=== PATIENT | female | born 1945 | race American Indian/Alaskan Native ===

== ENCOUNTER 2016-08-17 19:47 | Inpatient (IN) | payer MEDICARE ==
[2016-08-17] MEDS ORDERED: D50W (25GM) IV PRN (21:18)
[2016-08-17] MEDS ORDERED: ARTIFICIAL TEARS OPHTH OINT OU PRN (21:21)
[2016-08-17] MEDS ORDERED: LOPRESSOR PO SCH (22:00)
[2016-08-17] MEDS: LOPRESSOR PO SCH (22:54)
[2016-08-17] MEDS: TYLENOL PO PRN (22:55)
[2016-08-18 05:13] LABS: Basophils % (Auto) 0.6 % (0.0-1.8); Eosinophils % (Auto) 4.6 % (0.0-4.3); Hemoglobin 9.1 gm/dl (10.1-14.3); Mean Corpuscular HGB Conc 31 % (30-34); Mean Corpuscular Hemoglobin 27 pg (28-32); Mean Corpuscular Volume 85 fl (79-97); Platelet Count 388 K/mm3 (140-440); Red Blood Count 3.44 M/mm3 (3.65-5.03); White Blood Count 9.2 K/mm3 (4.5-11.0)
[2016-08-18 05:16] LABS: Red Cell Distribution Width 20.3 % (13.2-15.2)
[2016-08-18 05:41] LABS: Albumin/Globulin Ratio 0.7 %; Bilirubin,Total 0.3 mg/dL (0.1-1.2); Calcium 8.6 mg/dL (8.4-10.2); Chloride 105.7 mmol/L (98-107); Potassium 4.2 mmol/L (3.6-5.0); Total Protein 7.3 g/dL (6.3-8.2)
[2016-08-18] MEDS ORDERED: CATAPRES PO SCH (08:00)
[2016-08-18] MEDS: CATAPRES PO SCH ×3 (10:08→21:00)
[2016-08-18] MEDS: NORVASC PO SCH (10:09)
[2016-08-18] MEDS: LOPRESSOR PO SCH ×2 (10:09→22:51)
[2016-08-18] MEDS: DIFLUCAN PO SCH (10:10)
[2016-08-18] MEDS: HEPARIN SUB-Q SCH ×2 (10:11→22:52)
--- NOTE | 2016-08-18 11:15 | History and Physical Report ---
History of Present Illness Date: 08/18/16 Referring Facility: [facility] Date of admission: 08/17/16 19:47 Chief Complaint: DKA with acute respiratory failure History of present illness: POST ADMISSION PHYSICIAN EVALUATION ONSET DATE: 08/01/2016 IMPAIRMENT GROUP CODE: 17.9 ETIOLOGIC DIAGNOSIS: DKA with acute respiratory failure STATUS CHANGES SINCE PREADMISSION SCREENING: PAS has been reviewed. In comparison, pt with milian removed just prior to admission; now noted to be incontinent of urine. Also with increased left eye redness, no associated pain , however reports blurry vision. Pt has tolerated initiation of therapies; continues with functional deficits and remains an appropriate candidate for IRU admission. PREVIOUS FUNCTIONAL STATUS: Independent with ADLs, gait, transfers CURRENT FUNCTIONAL STATUS: per PAS, S/U to maxA for ADLs; modA x2 for 10 feet with RW HPI 70 y.o. female found down in her home by her ; required intubation due to acute respiratory failure, later self extubated on 08/11 to 2L nasal cannula ( not on oxygen at home). On acute care admission, pt also noted to be in DKA ( blood sugar of 690) and acute renal failure (BUN/Cr, 50/4.7). Pt required insulin drip; HgA1c noted to be 10; pt and unaware of diagnosis of DM prior to admission. Pt also required emergent hemodialysis (NEW); now discontinued. Acute care course further notable for sepsis, Samantha in blood and urine, repeat blood cultures negative; hypernatremia (max 150, currently 147 ); acute blood loss anemia (lowest H/H, 5.9/18.6), s/p 3U pRBCs; rhabdomyolysis with max CK 2522, now 117; acute encephalopathy. Once stable, pt was seen and evaluated by PT/HEALTH PROMOTION MANAGER and found to have difficulty ambulating and dysphagia; started on pureed diet. Pt is now admitted to IRU for ongoing medical management and aggressive therapies. Past History Past Medical History: diabetes (newly diagnosed), hypertension, renal failure Past Surgical History: hysterectomy Social history: , lives with family. denies: smoking, alcohol abuse Family history: hypertension, other (renal failure) Medications and Allergies Allergies Allergy/AdvReac Type Severity Reaction Status Date / Time No Known Allergies Allergy Verified 08/01/16 01:22 Home Medications Medication Instructions Recorded Confirmed Last Taken Type ALBUTEROL Inhaler [ProAir HFA 2 puff IH QID PRN #30 inhalation 08/17/16 Unknown Rx Inhaler] Bisacodyl [Dulcolax suppos] 10 mg PA QDAY PRN #10 supp.rect 08/17/16 Unknown Rx Ferrous Sulfate [Feosol 325 MG tab] 325 mg PO BID #60 tablet 08/17/16 Unknown Rx Fluconazole [Diflucan TAB] 100 mg PO QDAY #10 tablet 08/17/16 Unknown Rx Insulin NPH, Human [NovoLIN N] 10 unit SUB-Q BIDDIAB #30 units 08/17/16 Unknown Rx Metoprolol [Lopressor TAB] 100 mg PO BID #60 tablet 08/17/16 Unknown Rx Min Oil/Petrolatum [Artificial 1 applic OU Q4HR PRN #1 tube 08/17/16 Unknown Rx Tears Ophth Oint] amLODIPine [Norvasc] 10 mg PO QDAY #30 tablet 08/17/16 Unknown Rx cloNIDine [Catapres] 0.2 mg PO TID #60 tablet 08/17/16 Unknown Rx Active Meds: Active Medications Acetaminophen (Tylenol) 650 mg PO Q4H PRN PRN Reason: Pain MILD(1-3)/Fever >100.5/[place] Last Admin: 08/17/16 22:55 Dose: 650 mg Amlodipine Besylate (Norvasc) 10 mg PO QDAY [facility] Last Admin: 08/18/16 10:09 Dose: 10 mg Bisacodyl (Dulcolax) 10 mg PA QDAY PRN PRN Reason: Constipation unrelieved by MOM Clonidine HCl (Catapres) 0.1 mg PO TID [facility] Last Admin: 08/18/16 10:08 Dose: 0.1 mg Dextrose (D50w (25gm)) 50 ml IV PRN PRN PRN Reason: Hypoglycemia Fluconazole (Diflucan) 100 mg PO QDAY [facility] Stop: 08/25/16 07:59 Last Admin: 08/18/16 10:10 Dose: 100 mg Heparin Sodium (Porcine) (Heparin) 5,000 unit SUB-Q Q12HR [facility] Last Admin: 08/18/16 10:11 Dose: 5,000 unit Insulin Human NPH (Novolin N) 10 unit SUB-Q BIDDIAB [facility] Last Admin: 08/18/16 10:10 Dose: 10 unit Insulin Human Regular (Novolin R) 0 units SUB-Q ACHS [facility] PRN Reason: Protocol Last Admin: 08/17/16 22:55 Dose: 1 units Metoprolol Tartrate (Lopressor) 100 mg PO BID [facility] Last Admin: 08/18/16 10:09 Dose: 100 mg Multi-Ingred Cream/Lotion/Oil/Oint (Artificial Tears Ophth Oint) 1 applic OU Q4HR PRN PRN Reason: Dry Eye(s) Senna (Senokot) 8.6 mg PO Q12H PRN PRN Reason: Laxative Effect Review of Systems All systems: negative Eyes: left: blurred vision (redness) Ears, nose, mouth and throat: no headache Cardiovascular: no chest pain, no lightheadedness Respiratory: no cough Genitourinary Female: other (bladder incontinence since removing milian) Musculoskeletal: other (right hand finger contracture, new) Exam - Constitutional Vitals: Vital Signs - 12hr 08/18/16 08/18/16 09:20 10:08 Temperature 98.5 F Pulse Rate 80 Pulse Rate [ 77 Right Brachial] Respiratory 18 Rate Blood Pressure 156/73 Blood Pressure 147/68 [Right Arm] O2 Sat by Pulse 99 Oximetry General appearance: no acute distress, obese - EENT Eyes: EOM intact, conjunctival injection (left eye) ENT: hearing intact - Neck Neck: supple, normal ROM - Respiratory Respiratory effort: normal Respiratory: bilateral: CTA - Cardiovascular Rhythm: regular Heart Sounds: Present: S1 & S2 - Extremities Extremities: No edema - Gastrointestinal General gastrointestinal: Present: soft, non-tender, non-distended, normal bowel sounds - Integumentary Integumentary: Present: clear - Neurologic Neurologic: CNII-XII intact, moves all extremities (4/5 throughout, except decreased ROM at right hand, DIP) - Psychiatric Psychiatric: appropriate mood/affect, intact judgment & insight, no memory intact (oriented to self, family; however, noted to have mild short term memory deficits), cooperative - Allied health notes FIMS assesment as documented by PT/OT/ST: Social interaction/Memory/Problem solving Social Interaction FIM Score 5. Supervision (Needs supv. <10%. Needs encouragement to participate.) Memory FIM Score 4. Minimal Assistance (Recognizes and remembers 75-90%.) Problem Solving FIM Score 4. Minimal Assistance (Solves routine problems 75-90%.) Eating Eating FIM Score 5. Supervision/Set-Up (Needs help w/ containers , cutting meat, etc.) - Labs CBC & Chem 7: 08/18/16 04:06 08/18/16 04:06 Labs: Laboratory Results - last 72 hr 08/17/16 08/18/16 08/18/16 22:18 03:03 04:06 WBC 9.2 RBC 3.44 L Hgb 9.1 L Hct 29.0 L MCV 85 MCH 27 L MCHC 31 RDW 20.3 H Plt Count 388 Lymph % (Auto) 17.8 [place] % (Auto) 8.8 H Eos % (Auto) 4.6 H Baso % (Auto) 0.6 Lymph # 1.6 [place] # 0.8 Eos # 0.4 Baso # 0.1 Seg Neutrophils % 68.2 Seg Neutrophils # 6.3 Sodium Potassium Chloride Carbon Dioxide Anion Gap BUN Creatinine Estimated GFR BUN/Creatinine Ratio Glucose POC Glucose 151 H 119 H Calcium Total Bilirubin AST ALT Alkaline Phosphatase Total Protein Albumin Albumin/Globulin Ratio 08/18/16 08/18/16 04:06 06:50 WBC RBC Hgb Hct MCV MCH MCHC RDW Plt Count Lymph % (Auto) [place] % (Auto) Eos % (Auto) Baso % (Auto) Lymph # [place] # Eos # Baso # Seg Neutrophils % Seg Neutrophils # Sodium 149 H Potassium 4.2 Chloride 105.7 Carbon Dioxide 30 Anion Gap 18 BUN 50 H Creatinine 2.5 H Estimated GFR 23 BUN/Creatinine Ratio 20.00 Glucose 94 POC Glucose 103 Calcium 8.6 Total Bilirubin 0.30 AST 23 ALT 23 Alkaline Phosphatase 101 Total Protein 7.3 Albumin 3.0 L Albumin/Globulin Ratio 0.7 Assessment and Plan Assessment and plan: 70 y.o. female s/p DKA with acute respiratory failure, acute on chronic renal failure, sepsis, hypernatremia, acute blood loss anemia, resolved rhabdomyolysis , oral dysphagia, and acute encephalopathy. The patient is currently medically stable, however, requires ongoing medical management. Pt is appropriate for inpatient rehabilitation admission and is thought to be able to tolerate at least 3 hours of therapy a day, 5 days a week including 1 hour of physical therapy, 1 hour of occupational therapy, and 1 hour of speech therapy. Patient is able to understand and follow basic directions and has attainable rehab goals. Potential barriers/complications include falls, respiratory failure, aspiration, DVT, PE, syncope, hypoglycemia, hypotension. Plan 1. Rehabilitation- Pt will undergo multidisciplinary/integrative rehab PT/OT/ HEALTH PROMOTION MANAGER, Nursing. Areas to be addressed include, but are not limited to PT for mobility, strengthening, transfer training, ROM, endurance, stairs, balance; OT for ADLs, household tasks, adaptive equipment; HEALTH PROMOTION MANAGER for cognition, swallowing, compensatory techniques; Nursing for carryover of therapies, education, skin integrity, medication management, bowel/bladder management; Nutrition as needed ; director of cloud services for discharge planning and equipment needs. Potential interventions include appropriate assistive device or adaptive equipment. Expected overall level of functional improvement by discharge is Kalpesh for ADLs, gait, transfers; upgrade to at least mechanical soft diet when appropriate. Pt will tentatively be discharged home with outpatient PT/HEALTH PROMOTION MANAGER. Estimated length of stay is 1-2 weeks. 2. Newly diagnosed DM- s/p DKA; continue current regimen for now; may need to adjust to avoid hypoglycemia 3. acute respiratory failure- wean off oxygen as pt was not on chronic supplemental oxygen at home; follow O2 sats in therapies 4. acute on chronic renal failure- Nephrology to continue to follow while on IRU; slightly improved BUN/Cr; no current HD needs per Nephrology 5. sepsis- +samantha in blood and urine on admission; repeat blood culture negative; continue oral diflucan x 7 more days 6. hypernatremia- stable; follow 7. acute blood loss anemia- s/p transfusion- H/H improved on today; continue to follow 8. oral dysphagia- HEALTH PROMOTION MANAGER to evaluate and upgrade diet when appropriate 9. acute encephalopathy- HEALTH PROMOTION MANAGER for cognition 10. HTN- norvasc 11. DVT px- heparin - Patient Problems (1) Diabetes Current Visit: Yes Status: Acute Qualifiers: Diabetes mellitus type: type 2 Diabetes mellitus complication status: with hyperglycemia Diabetes mellitus complication detail: D Diabetic retinopathy severity: D Proliferative retinopathy type: P Diabetes mellitus macular edema: D Diabetes mellitus chcf insulin use: without intermediate manager use Laterality: L Chronic kidney disease stage: C Qualified Code(s): E11.65 - Type 2 diabetes mellitus with hyperglycemia (2) Respiratory failure Current Visit: Yes Status: Acute Qualifiers: Chronicity: unspecified Respiratory failure complication: hypoxia Qualified Code(s): J96.91 - Respiratory failure, unspecified with hypoxia (3) Rmieu-qy-xihyxpj kidney injury Current Visit: Yes Status: Acute (4) Sepsis due to Samantha Current Visit: No Status: Acute (5) Acute hypernatremia Current Visit: Yes Status: Acute (6) Anemia Current Visit: Yes Status: Acute Qualifiers: Anemia type: other cause Iron deficiency anemia type: I Vitamin B12 deficiency anemia type: V Folate deficiency anemia type: F Bone marrow failure anemia type: B Hemolytic anemia type: H Other causes of anemia: chronic disease, kidney Qualified Code(s): N18.9 - Chronic kidney disease, unspecified; D63.1 - Anemia in chronic kidney disease (7) Dysphagia Current Visit: Yes Status: Acute Qualifiers: Dysphagia type: oral phase Qualified Code(s): R13.11 - Dysphagia, oral phase (8) Encephalopathy Current Visit: Yes Status: Acute (9) HTN (hypertension) Current Visit: Yes Status: Acute Qualifiers: Hypertension type: essential hypertension Qualified Code(s): I10 - Essential (primary) hypertension
--- NOTE | 2016-08-18 13:46 | Progress Note ---
Assessment and Plan - Patient Problems (1) Zpqtz-zd-nvthvzj kidney injury Current Visit: Yes Status: Acute Plan to address problem: Acute Kidney Injury superimposed on CKD (?stage) in the setting of DKA, required hemodialysis due to worsening renal function, metabolic acidosis and suspected Uremia. Patient was last dialyzed on 08/11/16. Remain non-oliguric. Renal function continue to get better. D/w her at the bedside. (2) Diabetic ketoacidosis Current Visit: No Status: Acute Qualifiers: Diabetes mellitus type: type 1 Diabetes mellitus complication detail: with coma Qualified Code(s): E10.11 - Type 1 diabetes mellitus with ketoacidosis with coma Plan to address problem: Resolved. (3) Anemia Current Visit: Yes Status: Acute Qualifiers: Anemia type: other cause Iron deficiency anemia type: I Vitamin B12 deficiency anemia type: V Folate deficiency anemia type: F Bone marrow failure anemia type: B Hemolytic anemia type: H Other causes of anemia: chronic disease, kidney Qualified Code(s): N18.9 - Chronic kidney disease, unspecified; D63.1 - Anemia in chronic kidney disease Plan to address problem: Monitor H/H. (4) HTN (hypertension) Current Visit: Yes Status: Chronic Qualifiers: Hypertension type: essential hypertension Qualified Code(s): I10 - Essential (primary) hypertension Plan to address problem: BP is fair. (5) Rhabdomyolysis Current Visit: No Status: Acute Qualifiers: Rhabdomyolysis type: R Encounter type: E Plan to address problem: Resolved. (6) Encephalopathy Current Visit: Yes Status: Acute Plan to address problem: Improving. Subjective Date of service: 08/18/16 Interval history: Patient is feeling better. Able to participate in the therapy. Objective - Vital Signs Vital signs: Vital Signs - 12hr 08/18/16 08/18/16 08/18/16 09:20 10:00 10:08 Temperature 98.5 F Pulse Rate 80 Pulse Rate [ 77 77 Right Brachial] Respiratory 18 18 Rate Blood Pressure 156/73 Blood Pressure 147/68 [Right Arm] O2 Sat by Pulse 99 99 Oximetry - General Appearance General appearance: well-developed, well-nourished, appears stated age, obese, other (no distress) EENT: ATNC, mucous membranes moist, hearing intact, vision intact Neck: no carotid bruit, supple Respiratory: Present: Clear to Ascultation Cardiology: regular, S1S2, no murmurs Gastrointestinal: normoactive bowel sounds, no tenderness, no distended, obese Integumentary: no rash Neurologic: no focal deficit, no asterixis, confused, disoriented Musculoskeletal: other (no edema) Psychiatric: mood/affect appropriate, cooperative - Lab 08/18/16 04:06 08/18/16 04:06 Most recent lab results Calcium 8.6 mg/dL (8.4-10.2) 08/18/16 04:06
[2016-08-19 06:11] LABS: Calcium 8.4 mg/dL (8.4-10.2); Chloride 105.4 mmol/L (98-107); Magnesium 1.8 mg/dL (1.7-2.3); Phosphorous 4.4 mg/dL (2.5-4.5); Potassium 4.1 mmol/L (3.6-5.0)
[2016-08-19] MEDS: LOPRESSOR PO SCH ×2 (08:16→22:50)
[2016-08-19] MEDS: DIFLUCAN PO SCH (08:16)
[2016-08-19] MEDS: CATAPRES PO SCH ×3 (08:16→20:46)
[2016-08-19] MEDS: NORVASC PO SCH (08:16)
--- NOTE | 2016-08-19 08:41 | Progress Note ---
Assessment and Plan - Patient Problems (1) Vjgfo-bm-frufect kidney injury Current Visit: Yes Status: Acute Plan to address problem: Acute Kidney Injury superimposed on CKD (?stage) in the setting of DKA, required hemodialysis due to worsening renal function, metabolic acidosis and suspected Uremia. Patient was last dialyzed on 08/11/16. Remain non-oliguric. Renal function continue to get better. D/w her at the bedside. (2) Diabetic ketoacidosis Current Visit: No Status: Acute Qualifiers: Diabetes mellitus type: type 1 Diabetes mellitus complication detail: with coma Qualified Code(s): E10.11 - Type 1 diabetes mellitus with ketoacidosis with coma Plan to address problem: Resolved. (3) Anemia Current Visit: Yes Status: Acute Qualifiers: Anemia type: other cause Iron deficiency anemia type: I Vitamin B12 deficiency anemia type: V Folate deficiency anemia type: F Bone marrow failure anemia type: B Hemolytic anemia type: H Plan to address problem: Monitor H/H. (4) HTN (hypertension) Current Visit: Yes Status: Chronic Qualifiers: Hypertension type: essential hypertension Qualified Code(s): I10 - Essential (primary) hypertension Plan to address problem: BP is fair. (5) Rhabdomyolysis Current Visit: No Status: Acute Qualifiers: Rhabdomyolysis type: R Encounter type: E Plan to address problem: Resolved. (6) Encephalopathy Current Visit: Yes Status: Acute Plan to address problem: Improving. Subjective Date of service: 08/19/16 Interval history: Patient is feeling better. Able to participate in the therapy. Objective - Vital Signs Vital signs: Vital Signs - 12hr 08/18/16 08/18/16 08/18/16 21:00 22:00 22:51 Pulse Rate 75 76 Respiratory 18 Rate [headache] Blood Pressure 150/68 150/68 O2 Sat by Pulse 98 Oximetry - General Appearance General appearance: well-developed, well-nourished, appears stated age, obese, other (no distress) EENT: ATNC, mucous membranes moist, hearing intact Neck: supple Respiratory: Present: Clear to Ascultation Cardiology: regular, S1S2, no murmurs Gastrointestinal: normoactive bowel sounds, no tenderness, no distended Integumentary: no rash Neurologic: no focal deficit, no asterixis, confused, disoriented Musculoskeletal: other (no edema) Psychiatric: mood/affect appropriate, cooperative - Lab 08/18/16 04:06 08/19/16 05:23 Most recent lab results Calcium 8.4 mg/dL (8.4-10.2) 08/19/16 05:23 Phosphorus 4.40 mg/dL (2.5-4.5) 08/19/16 05:23 Magnesium 1.80 mg/dL (1.7-2.3) 08/19/16 05:23
[2016-08-19] MEDS: HEPARIN SUB-Q SCH ×2 (10:00→22:49)
--- NOTE | 2016-08-19 10:23 | IRU Plan of Care ---
Interdisciplinary Plan of Care - IP IRU INTERDISCIPLINARY PLAN: [facility] Inpatient Rehab Unit Plan of Care IRU Interdisciplinary Care Plan Start: 08/17/16 20: 00 Freq: Admission then PRN Status: Active Document 08/18/16 17:40 DB (Rec: 08/18/16 17:49 DB [id number]) Interdisciplinary Problem List Interdisciplinary Problem List Interdisciplinary Problem List Impaired Eating/Swallowing Query Text:Answers will Trigger Problems Impaired Bathing/Grooming and Outcomes on Worklist. Impaired Dressing Impaired Mobility Impaired Transfers Impaired Comprehension Impaired Expression Impaired Problem Solving Impaired Memory Impaired Safety Medications Education Diabetes Education Impaired Oxygenation IRU Interdisciplinary Care Plan Therapy Services Therapy Services Will Include: Physical Therapy Query Text:Patient will be seen for a Occupational Therapy minimum of 3 hours of daily therapy 5 Speech Therapy out of 7 days a week. Therapy intensity may be adjusted within a 7 consecutive day period to effectively serve the individual needs of the patient. Treatment Frequency/Intensity/Duration Treatment Frequency 5 days per week Treatment Intensity 1 hour per discipline (PT/OT/ ELECTRON BEAM PHOTO MASK MAKER) daily Treatment Duration 10-14 days Problem Area: Eating/Swallowing Eating/Swallowing Outcomes Consume Least Restrictive Diet Feed Self Eating/Swallowing Interventions ADL Training Patient/Caregiver Education Problem Area: Bathing/Grooming Bathing/Grooming Outcomes Improve [place] w/ Grooming Improve [place] w/ Bathing Bathing/Grooming Interventions ADL Training Use of Assistive Devices Therapeutic Activity Neuromuscular Re-Education Activity Tolerance Work Patient/Caregiver Education Problem Area: Dressing Dressing Outcomes Improve [place] w/ UB Dressing Improve [place] w/ LB Dressing Dressing Interventions ADL Training Neuromuscular Re-Education Balance Work Patient/Caregiver Education Problem Area: Mobility Mobility Outcomes Improve [place] w/ Bed Mobility Improve [place] w/ Ambulation Improve [place] w/ Stairs /Curb Improve [place] w/ Wheelchair Mobility Interventions Therapeutic Exercise Neuromuscular Re-Ed. Activity Tolerance Work Use of Assistive Devices Patient/Caregiver Education Bed Mobility Work Gait Training W/C Mobility Work Problem Area: Transfers Transfers Outcomes Improve [place] w/ Bed Transfers Improve [place] w/ Toilet Transfers Improve [place] w/ Tub/ Shower Transfers Improve [place] w/ Car Transfers Transfers Interventions Transfer Training Therapeutic Exercise Neuromuscular Re-Education Activity Tolerance Work Use of Assistive Devices Patient/Caregiver Education Problem Area: Bowel/Bladder Managment Bowel/Bladder Outcomes Continent of Bladder Remain free of UTI Bowel/Bladder Interventions Bladder Training Program Patient/Caregiver Education Problem Area: Toileting Toileting Outcomes Improve [place] w/ Toileting Toileting Interventions ADL Training Patient/Caregiver Education Problem Area: Nutrition Nutrition Outcomes Understand and Comply w/ Diet Improve/Maintain Oral Intake Nutrition Interventions Nutritional Counseling Monitor Nutrient Intake Problem Area: Comprehension Comprehension Outcomes Improve Comprehension Follow Commands Comprehension Interventions Patient/Caregiver Education Problem Area: Expression Expression Outcomes Expression Interventions Problem Area: Problem Solving Problem Solving Outcomes Improve Problem Solving Problem Solving Interventions Cognitive Training Patient/Caregiver Education Problem Area: Memory Memory Outcomes Use Memory Aids Memory Interventions Cognitive Training Patient/Caregiver Education Problem Area: Pain Management Pain Management Outcomes Pain Management Interventions Problem Area: Knowledge Deficits Knowledge Deficits Outcomes Demonstrate Ability to Manage Blood Glucose Verbalize Precautions Knowledge Deficits Interventions Disease/Injury/Sx. Intervention Education Medication Use Education Disease Management Education Health Maintainence Education Safety Education Problem Area: Skin/Tissue Integrity Skin/Tissue Integrity Outcomes Exhibit Healing of Wound/ Incision Demonstrate Understanding of Pressure Relief Skin/Tissue Integrity Interventions Skin/Wound Care Pressure Relief Instruction Positioning/Turning Problem Area: Social Interaction Social Interaction Outcomes Social Interaction Interventions Problem Area: Adjustment to Disability Adjustment to Disability Outcomes Adjustment to Disability Interventions Problem Area: Discharge Concerns Discharge Concerns Outcomes Discharge Home w/ Necessary Equipment Have Home Health/Outpatient Services Discharge Concerns Interventions Discharge Planning Family/Caregiver Conference Family/Caregiver Training Problem Area: Community Reintegration Community Reintegration Outcomes Demonstrate Understanding of Community Resources Community Reintegration Interventions Provide Community Resources Problem Area: Home Management Home Management Outcomes Home Management Interventions Problem Area: Safety Safety Outcomes Provide Safe Environment Perform Selfcare Safely Demonstrate Good Safety w/ Transfers/Mobility Safety Interventions Identify Fall Risk Vivian Pt. to Environment Reduce Environmental Hazards Problem Area: Medication Education Medication Education Outcomes Patient/Caregiver will Verbalize Understanding of Medications Medication Education Interventions Explain Administration/Side Effects/Interactions Problem Area: Diabetes Education Diabetes Education Outcomes Demonstrate Knowledge of Resources Availlable in Diabetic Ed. Folder Diabetes Education Interventions Give Pt. Diabetes Education Folder Discuss Pathophysiology of Diabetes Problem Area: Oxygenation Oxygenation Outcomes Maintain Adequate Oxygenation Oxygenation Interventions Assess Respiratory Status Encourage Coughing and Deep Breathing Elevate Head of Bed Problem Area: Cardiovascular Cardiovascular Outcomes Cardiovascular Interventions Physician Only Medical Prognosis and Rehabilitation Patient demonstrates good Potential (Completed by Physician) rehab potential. Medical Prognosis: Good This plan of care has been developed based on the findings from the pre- admission assessment, post admission physician evaluation, information gathered from the assessments from all therapy disciplines and other pertinent clinicians. The plan of care has been reviewed and discussed in collaboration with the interdisciplinary team. The plan of care will be reviewed and updated at least weekly. 70 y.o. female s/p DKA with acute respiratory failure, acute on chronic renal failure, sepsis, hypernatremia, acute blood loss anemia, oral dysphagia, and acute encephalopathy, resolved rhabdomyolysis. The patient remains at risk for falls, respiratory failure, aspiration, DVT, PE, syncope, hypoglycemia, hypotension. Blood sugars continue to require close management, ranging from 66 -206 in last 24 hours; blood pressure stable; hypernatremia stable. Continue oral ABX to complete treatment for Samantha in blood and urine; follow H/H. Continue aspiration precautions; diet upgraded to mechanical soft; follow oxygen saturations. Pt is tolerating therapies well and remains an appropriate candidate for IRU admission.
--- NOTE | 2016-08-19 15:32 | Progress Note ---
Assessment and Plan 70 y.o. female s/p DKA with acute respiratory failure, acute on chronic renal failure, sepsis, hypernatremia, acute blood loss anemia, resolved rhabdomyolysis , oral dysphagia, and acute encephalopathy. 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 - HTN- stable on norvasc - DVT px- heparin - Patient Problems (1) Diabetes Current Visit: Yes Status: Acute Qualifiers: Diabetes mellitus type: type 2 Diabetes mellitus complication status: with hyperglycemia Diabetes mellitus complication detail: D Diabetic retinopathy severity: D Proliferative retinopathy type: P Diabetes mellitus macular edema: D Diabetes mellitus chcf insulin use: without emt intermediate use Laterality: L Chronic kidney disease stage: C Qualified Code(s): E11.65 - Type 2 diabetes mellitus with hyperglycemia (2) Respiratory failure Current Visit: Yes Status: Acute Qualifiers: Chronicity: unspecified Respiratory failure complication: hypoxia Qualified Code(s): J96.91 - Respiratory failure, unspecified with hypoxia (3) Npvtv-fl-raaqbsm kidney injury Current Visit: Yes Status: Acute (4) Sepsis due to Samantha Current Visit: No Status: Acute (5) Acute hypernatremia Current Visit: Yes Status: Acute (6) Dysphagia Current Visit: Yes Status: Acute Qualifiers: Dysphagia type: oral phase Qualified Code(s): R13.11 - Dysphagia, oral phase (7) Encephalopathy Current Visit: Yes Status: Acute (8) HTN (hypertension) Current Visit: Yes Status: Chronic Qualifiers: Hypertension type: essential hypertension Qualified Code(s): I10 - Essential (primary) hypertension Subjective Date of service: 08/19/16 Principal diagnosis: DKA with acute respiratory failure Interval history: Pt seen in room this afternoon, eating lunch; F/U IPR course, s/p DKA with acute respiratory failure. present; reports difficulty sleeping. Tolerating meals without difficulty Objective - Constitutional Vitals: Vital Signs - 12hr 08/19/16 08:00 Temperature 97.4 F L Pulse Rate [ 76 Left Brachial] Respiratory 20 Rate Blood Pressure 150/75 [Left Arm] O2 Sat by Pulse 96 Oximetry General appearance: Present: no acute distress - EENT Eyes: EOM intact ENT: hearing intact - Neck Neck: supple, normal ROM - Respiratory Respiratory effort: normal Extremities: No edema - Integumentary Integumentary: clear - Neurologic Neurologic: CNII-XII intact, moves all extremities - Psychiatric Psychiatric: appropriate mood/affect, cooperative - Allied health notes Allied health notes reviewed: PT (CGA for transfers; ambulated up to 90 feet), ST (deficits noted in memory and comprehension), OT (s/u to total A with ADLs) - Labs CBC & Chem 7: 08/18/16 04:06 08/19/16 05:23 Labs: Abnormal lab results 08/18/16 08/18/16 08/19/16 Range/Units 16:44 21:21 05:23 Sodium 148 H (137-145) mmol/L BUN 42 H (7-17) mg/dL Creatinine 2.0 H (0.7-1.2) mg/dL Glucose 117 H (65-100) mg/dL POC Glucose 66 L 206 H (70-105) 08/19/16 Range/Units 11:37 Sodium (137-145) mmol/L BUN (7-17) mg/dL Creatinine (0.7-1.2) mg/dL Glucose (65-100) mg/dL POC Glucose 188 H (70-105)
[2016-08-20 05:21] LABS: BUN/Creatinine Ratio 20.47; Calcium 8.2 mg/dL (8.4-10.2); Chloride 105.1 mmol/L (98-107)
--- NOTE | 2016-08-20 10:08 | Progress Note ---
Assessment and Plan 70 y.o. female s/p DKA with acute respiratory failure, acute on chronic renal failure, sepsis, hypernatremia, acute blood loss anemia, resolved rhabdomyolysis , oral dysphagia, and acute encephalopathy. 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 - HTN- stable on norvasc - left eye conjunctivitis- vigamox x 7days - DVT px- heparin - Patient Problems (1) Diabetes Current Visit: Yes Status: Acute Qualifiers: Diabetes mellitus type: type 2 Diabetes mellitus complication status: with hyperglycemia Diabetes mellitus complication detail: D Diabetic retinopathy severity: D Proliferative retinopathy type: P Diabetes mellitus macular edema: D Diabetes mellitus termite treater insulin use: without termite treater use Laterality: L Chronic kidney disease stage: C Qualified Code(s): E11.65 - Type 2 diabetes mellitus with hyperglycemia (2) Respiratory failure Current Visit: Yes Status: Acute Qualifiers: Chronicity: unspecified Respiratory failure complication: hypoxia Qualified Code(s): J96.91 - Respiratory failure, unspecified with hypoxia (3) Wdbcy-uh-vehrtxt kidney injury Current Visit: Yes Status: Acute (4) Sepsis due to Samantha Current Visit: No Status: Acute (5) Acute hypernatremia Current Visit: Yes Status: Acute (6) Encephalopathy Current Visit: Yes Status: Acute (7) HTN (hypertension) Current Visit: Yes Status: Chronic Qualifiers: Hypertension type: essential hypertension Qualified Code(s): I10 - Essential (primary) hypertension (8) Conjunctivitis, left eye Current Visit: Yes Status: Acute Qualifiers: Conjunctivitis type: acute Blepharoconjunctivitis type: B Acute conjunctivitis type: unspecified Chronic conjunctivitis type: C Qualified Code(s): H10.32 - Unspecified acute conjunctivitis, left eye Subjective Date of service: 08/20/16 Principal diagnosis: DKA with acute respiratory failure Interval history: Pt seen in room this AM; F/U IPR course, s/p DKA with acute respiratory failure. +BM overnight; weaning off oxygen Objective - Constitutional Vitals: Vital Signs - 12hr 08/19/16 08/20/16 22:50 08:00 Temperature 98.3 F Pulse Rate 70 Pulse Rate [ 72 Left Brachial] Respiratory 20 Rate Blood Pressure 150/70 Blood Pressure 133/69 [Left Arm] O2 Sat by Pulse 100 Oximetry General appearance: Present: no acute distress - EENT Eyes: conjunctival injection (left eye) ENT: hearing intact - Neck Neck: normal ROM - Respiratory Respiratory effort: normal Respiratory: bilateral: CTA - Cardiovascular Rhythm: regular Heart Sounds: Present: S1 & S2 Extremity abnormal: edema (pedal; bilaterally) - Gastrointestinal General gastrointestinal: Present: soft, non-tender, non-distended, normal bowel sounds - Integumentary Integumentary: clear - Neurologic Neurologic: CNII-XII intact, moves all extremities - Psychiatric Psychiatric: cooperative (flat affect) - Allied health notes Allied health notes reviewed: ST (memory and word finding difficulties), OT (CGA -modA for ADLs) - Labs CBC & Chem 7: 08/18/16 04:06 08/20/16 04:24 Labs: Abnormal lab results 08/19/16 08/19/16 08/19/16 Range/Units 11:37 17:00 21:18 Sodium (137-145) mmol/L BUN (7-17) mg/dL Creatinine (0.7-1.2) mg/dL POC Glucose 188 H 109 H 125 H (70-105) Calcium (8.4-10.2) mg/dL 08/20/16 08/20/16 Range/Units 04:24 06:55 Sodium 148 H (137-145) mmol/L BUN 43 H (7-17) mg/dL Creatinine 2.1 H (0.7-1.2) mg/dL POC Glucose 109 H (70-105) Calcium 8.2 L (8.4-10.2) mg/dL
[2016-08-20] MEDS: DIFLUCAN PO SCH (10:16)
[2016-08-20] MEDS: NORVASC PO SCH (10:17)
[2016-08-20] MEDS: LOPRESSOR PO SCH ×2 (10:17→22:10)
[2016-08-20] MEDS: CATAPRES PO SCH ×3 (10:18→21:11)
[2016-08-20] MEDS: HEPARIN SUB-Q SCH ×2 (10:19→22:12)
--- NOTE | 2016-08-20 15:12 | Event Note ---
Date: 08/20/16 IRU admission has been denied by Insurance, [employer]. Pre- authorization for IRU stay initiated on 08/16/2016 @ 3:51pm; neighborhood coordinator verified receipt of request with Michelle on 08/17. When called to F/U after no notification of approval after 24 hours, information re-submitted on 08/18/2016 @ 435pm. Due to [facility] not providing F/U and decision in a timely manner and allotted 24 hours, pt was admitted to IRU, 08/17/16 @ 1947. Received notification by fax of denial on 08/19/2016 @ 152pm; peer to peer immediately requested. Case discussed with Dr. Rodriguez at 1012 on 08/20/16. hospital pharmacy director made aware that pt was not an appropriate candidate for SNF placement due to the complexity of care. Pt is s/p DKA, newly diagnosed diabetic, new on insulin; remains in acute on chronic renal failure, s/p emergent HD adn Nephrology actively following for need to resume on HD; acute respiratory failure on oxygen (not on at home prior to admission); acute sepsis, still on ABX (madiha in blood and urine); hypernatremia (Na 148); acute encephalopathy with ongoing deficits in memory and word finding. Also made aware of delay in response to request, which in turn is a detriment to patient care. Per Dr. Rodriguez, we would be notified of any change in decision, which after calling to follow, determined to be upheld as a denied case. At this time, we will request an expedited appeal.
--- NOTE | 2016-08-20 15:25 | Progress Note ---
Assessment and Plan - Patient Problems (1) Tniqi-ql-qceiobs kidney injury Current Visit: Yes Status: Acute Plan to address problem: Acute Kidney Injury superimposed on CKD (?stage) in the setting of DKA, required hemodialysis due to worsening renal function, metabolic acidosis and suspected Uremia. Patient was last dialyzed on 08/11/16. Remain non-oliguric. Creatinine is stable around 2. (2) Diabetic ketoacidosis Current Visit: No Status: Acute Qualifiers: Diabetes mellitus type: type 1 Diabetes mellitus complication detail: with coma Qualified Code(s): E10.11 - Type 1 diabetes mellitus with ketoacidosis with coma Plan to address problem: Resolved. (3) Anemia Current Visit: Yes Status: Acute Qualifiers: Anemia type: other cause Iron deficiency anemia type: I Vitamin B12 deficiency anemia type: V Folate deficiency anemia type: F Bone marrow failure anemia type: B Hemolytic anemia type: H Other causes of anemia: O Plan to address problem: Monitor H/H. (4) HTN (hypertension) Current Visit: Yes Status: Chronic Qualifiers: Hypertension type: essential hypertension Qualified Code(s): I10 - Essential (primary) hypertension Plan to address problem: BP well controlled. (5) Rhabdomyolysis Current Visit: No Status: Acute Qualifiers: Rhabdomyolysis type: R Encounter type: E Plan to address problem: Resolved. (6) Encephalopathy Current Visit: Yes Status: Acute Plan to address problem: Improving. Subjective Date of service: 08/20/16 Principal diagnosis: DKA with acute respiratory failure Interval history: Patient denies any new complaint. Objective - Vital Signs Vital signs: Vital Signs - 12hr 08/20/16 08/20/16 08/20/16 08:00 10:17 10:18 Temperature 98.3 F Pulse Rate 72 72 Pulse Rate [ 72 Left Brachial] Respiratory 20 Rate Blood Pressure 133/69 133/69 Blood Pressure 133/69 [Left Arm] O2 Sat by Pulse 100 Oximetry 08/20/16 14:29 Temperature Pulse Rate 71 Pulse Rate [ Left Brachial] Respiratory Rate Blood Pressure 123/69 Blood Pressure [Left Arm] O2 Sat by Pulse Oximetry - General Appearance General appearance: well-developed, well-nourished, appears stated age, obese, other (no distress) EENT: ATNC, mucous membranes moist, hearing intact, vision intact Neck: supple Respiratory: Present: Clear to Ascultation Cardiology: regular, S1S2, no murmurs Gastrointestinal: normoactive bowel sounds, no tenderness, no distended Integumentary: no rash Neurologic: no focal deficit, no asterixis, confused, disoriented Musculoskeletal: other (no edema) Psychiatric: mood/affect appropriate, cooperative - Lab 08/18/16 04:06 08/20/16 04:24 Most recent lab results Calcium 8.2 mg/dL (8.4-10.2) L 08/20/16 04:24 Phosphorus 4.40 mg/dL (2.5-4.5) 08/19/16 05:23 Magnesium 1.80 mg/dL (1.7-2.3) 08/19/16 05:23
[2016-08-20] MEDS: VIGAMOX OS SCH ×2 (19:08→22:12)
[2016-08-21 05:13] LABS: White Blood Count 6.4 K/mm3 (4.5-11.0)
[2016-08-21 05:14] LABS: Basophils % (Auto) 0.5 % (0.0-1.8); Eosinophils % (Auto) 5.9 % (0.0-4.3); Hematocrit 28.6 % (30.3-42.9); Mean Corpuscular HGB Conc 31 % (30-34); Mean Corpuscular Hemoglobin 26 pg (28-32); Mean Corpuscular Volume 83 fl (79-97); Platelet Count 308 K/mm3 (140-440); Red Blood Count 3.43 M/mm3 (3.65-5.03); Red Cell Distribution Width 19.3 % (13.2-15.2)
[2016-08-21 05:29] LABS: Albumin 3.1 g/dL (3.9-5); Albumin/Globulin Ratio 0.9 %; BUN/Creatinine Ratio 22.22; Bilirubin,Total 0.3 mg/dL (0.1-1.2); Calcium 8.2 mg/dL (8.4-10.2); Chloride 106.2 mmol/L (98-107); Magnesium 1.8 mg/dL (1.7-2.3); Phosphorous 4.1 mg/dL (2.5-4.5); Potassium 4.4 mmol/L (3.6-5.0); Total Protein 6.7 g/dL (6.3-8.2)
[2016-08-21] MEDS: VIGAMOX OS SCH ×3 (06:08→21:41)
[2016-08-21] MEDS: DIFLUCAN PO SCH (08:29)
[2016-08-21] MEDS: LOPRESSOR PO SCH ×2 (08:30→21:39)
[2016-08-21] MEDS: NORVASC PO SCH (08:30)
[2016-08-21] MEDS: CATAPRES PO SCH ×3 (08:31→20:00)
[2016-08-21] MEDS: HEPARIN SUB-Q SCH ×2 (10:26→23:00)
--- NOTE | 2016-08-21 15:36 | Progress Note ---
Assessment and Plan - Patient Problems (1) Rzeai-ol-ssyuqgd kidney injury Current Visit: Yes Status: Acute Plan to address problem: Acute Kidney Injury superimposed on CKD (?stage) in the setting of DKA, required hemodialysis due to worsening renal function, metabolic acidosis and suspected Uremia. Patient was last dialyzed on 08/11/16. Remain non-oliguric. Creatinine continues to get better. (2) Diabetic ketoacidosis Current Visit: No Status: Acute Qualifiers: Diabetes mellitus type: type 2 Diabetes mellitus complication detail: with coma Qualified Code(s): E13.11 - Other specified diabetes mellitus with ketoacidosis with coma Plan to address problem: Resolved. (3) Anemia Current Visit: Yes Status: Acute Qualifiers: Anemia type: other cause Iron deficiency anemia type: I Vitamin B12 deficiency anemia type: V Folate deficiency anemia type: F Bone marrow failure anemia type: B Hemolytic anemia type: H Other causes of anemia: O Plan to address problem: H/H stable. (4) HTN (hypertension) Current Visit: Yes Status: Chronic Qualifiers: Hypertension type: essential hypertension Qualified Code(s): I10 - Essential (primary) hypertension Plan to address problem: BP well controlled. Due to leg swelling will stop Amlodipine and increase Clonidine. (5) Rhabdomyolysis Current Visit: No Status: Acute Qualifiers: Rhabdomyolysis type: R Encounter type: E Plan to address problem: Resolved. (6) Encephalopathy Current Visit: Yes Status: Acute Subjective Date of service: 08/21/16 Principal diagnosis: DKA with acute respiratory failure Interval history: Patient complaint of bilateral leg swelling. Objective - Vital Signs Vital signs: Vital Signs - 12hr 08/21/16 08/21/16 08/21/16 08:30 08:31 08:51 Temperature 97.8 F Pulse Rate 76 76 Pulse Rate [ 76 Right Brachial] Respiratory 18 Rate Blood Pressure 160/80 160/80 Blood Pressure 160/80 [Right Arm] O2 Sat by Pulse 94 Oximetry 08/21/16 15:14 Temperature Pulse Rate 70 Pulse Rate [ Right Brachial] Respiratory Rate Blood Pressure 135/79 Blood Pressure [Right Arm] O2 Sat by Pulse Oximetry - General Appearance General appearance: well-developed, well-nourished, appears stated age, obese, other (no distress) EENT: ATNC, mucous membranes moist, hearing intact, vision intact Neck: supple Respiratory: Present: Clear to Ascultation Cardiology: regular, S1S2, no murmurs Gastrointestinal: normoactive bowel sounds, no tenderness, no distended Integumentary: no rash Neurologic: no focal deficit, no asterixis, confused Musculoskeletal: other (1+ pitting edema of both legs) Psychiatric: mood/affect appropriate, cooperative - Lab 08/21/16 04:34 08/21/16 04:34 Most recent lab results Calcium 8.2 mg/dL (8.4-10.2) L 08/21/16 04:34 Phosphorus 4.10 mg/dL (2.5-4.5) 08/21/16 04:34 Magnesium 1.80 mg/dL (1.7-2.3) 08/21/16 04:34
[2016-08-22] MEDS: VIGAMOX OS SCH ×2 (06:00→14:19)
[2016-08-22] MEDS: LOPRESSOR PO SCH ×2 (08:48→22:27)
[2016-08-22] MEDS: DIFLUCAN PO SCH (08:48)
[2016-08-22] MEDS: CATAPRES PO SCH ×4 (08:49→21:30)
[2016-08-22] MEDS: HEPARIN SUB-Q SCH ×2 (09:57→21:02)
--- NOTE | 2016-08-22 13:02 | Progress Note ---
Assessment and Plan - Patient Problems (1) Wlpsg-pk-kwgozjj kidney injury Current Visit: Yes Status: Acute Plan to address problem: Acute Kidney Injury superimposed on CKD (?stage) in the setting of DKA, required hemodialysis due to worsening renal function, metabolic acidosis and suspected Uremia. Patient was last dialyzed on 08/11/16. Creatinine continues to get better. (2) Diabetic ketoacidosis Current Visit: No Status: Acute Qualifiers: Diabetes mellitus type: type 2 Diabetes mellitus complication detail: with coma Qualified Code(s): E13.11 - Other specified diabetes mellitus with ketoacidosis with coma Plan to address problem: Resolved. (3) Anemia Current Visit: Yes Status: Acute Qualifiers: Anemia type: other cause Iron deficiency anemia type: I Vitamin B12 deficiency anemia type: V Folate deficiency anemia type: F Bone marrow failure anemia type: B Hemolytic anemia type: H Other causes of anemia: O Plan to address problem: H/H stable. (4) HTN (hypertension) Current Visit: Yes Status: Chronic Qualifiers: Hypertension type: essential hypertension Qualified Code(s): I10 - Essential (primary) hypertension Plan to address problem: BP well controlled. (5) Rhabdomyolysis Current Visit: No Status: Acute Qualifiers: Rhabdomyolysis type: R Encounter type: E Plan to address problem: Resolved. (6) Encephalopathy Current Visit: Yes Status: Acute Plan to address problem: Improving. Subjective Date of service: 08/22/16 Principal diagnosis: DKA with acute respiratory failure Interval history: Leg swelling is improving. Objective - Vital Signs Vital signs: Vital Signs - 12hr 08/22/16 08/22/16 08/22/16 07:50 08:48 08:49 Temperature 98.4 F Pulse Rate 72 72 Pulse Rate [ 72 Right Brachial] Respiratory 18 Rate Blood Pressure 139/70 139/70 Blood Pressure 139/70 [Right Arm] O2 Sat by Pulse 94 Oximetry 08/22/16 10:00 Temperature Pulse Rate Pulse Rate [ Right Brachial] Respiratory Rate Blood Pressure Blood Pressure [Right Arm] O2 Sat by Pulse 94 Oximetry - General Appearance General appearance: well-developed, well-nourished, appears stated age, obese, other (no distress) EENT: ATNC, mucous membranes moist, hearing intact, vision intact Neck: supple Respiratory: Present: Clear to Ascultation Cardiology: regular, S1S2, no murmurs Gastrointestinal: normoactive bowel sounds, no tenderness, no distended Integumentary: no rash Neurologic: no focal deficit, no asterixis, confused, disoriented Musculoskeletal: other (trace pedal edema) Psychiatric: mood/affect appropriate, cooperative - Lab 08/21/16 04:34 08/21/16 04:34 Most recent lab results Calcium 8.2 mg/dL (8.4-10.2) L 08/21/16 04:34 Phosphorus 4.10 mg/dL (2.5-4.5) 08/21/16 04:34 Magnesium 1.80 mg/dL (1.7-2.3) 08/21/16 04:34
[2016-08-23 05:07] LABS: BUN/Creatinine Ratio 21.66; Calcium 8.4 mg/dL (8.4-10.2); Chloride 107.2 mmol/L (98-107); Potassium 4.8 mmol/L (3.6-5.0)
--- NOTE | 2016-08-23 07:51 | Progress Note ---
Assessment and Plan - Patient Problems (1) Pxtaa-lt-inccurj kidney injury Current Visit: Yes Status: Acute Plan to address problem: Acute Kidney Injury superimposed on CKD (?stage) in the setting of DKA, required hemodialysis due to worsening renal function, metabolic acidosis and suspected Uremia. Patient was last dialyzed on 08/11/16. Renal function is much better. (2) Diabetic ketoacidosis Current Visit: No Status: Acute Qualifiers: Diabetes mellitus type: type 2 Diabetes mellitus complication detail: with coma Qualified Code(s): E13.11 - Other specified diabetes mellitus with ketoacidosis with coma Plan to address problem: Resolved. (3) Anemia Current Visit: Yes Status: Acute Qualifiers: Anemia type: other cause Iron deficiency anemia type: I Vitamin B12 deficiency anemia type: V Folate deficiency anemia type: F Bone marrow failure anemia type: B Hemolytic anemia type: H Other causes of anemia: O Plan to address problem: H/H stable. (4) HTN (hypertension) Current Visit: Yes Status: Chronic Qualifiers: Hypertension type: essential hypertension Qualified Code(s): I10 - Essential (primary) hypertension Plan to address problem: BP well controlled. (5) Rhabdomyolysis Current Visit: No Status: Acute Qualifiers: Rhabdomyolysis type: R Encounter type: E Plan to address problem: Resolved. (6) Encephalopathy Current Visit: Yes Status: Acute Plan to address problem: Improving. Subjective Date of service: 08/23/16 Principal diagnosis: DKA with acute respiratory failure Interval history: No new complaint. Objective - Vital Signs Vital signs: Vital Signs - 12hr 08/22/16 08/22/16 08/22/16 20:00 21:30 22:00 Temperature 98.1 F Pulse Rate 70 Pulse Rate [ 68 Left Brachial] Respiratory 18 Rate Blood Pressure 126/68 Blood Pressure 121/66 [Left Arm] O2 Sat by Pulse 94 94 Oximetry 08/22/16 22:27 Temperature Pulse Rate 70 Pulse Rate [ Left Brachial] Respiratory Rate Blood Pressure 126/68 Blood Pressure [Left Arm] O2 Sat by Pulse Oximetry - General Appearance General appearance: well-developed, well-nourished, appears stated age, other ( no distress) EENT: ATNC, PERRL, mucous membranes moist, hearing intact, vision intact Neck: supple Respiratory: Present: Clear to Ascultation Cardiology: regular, S1S2, no murmurs Gastrointestinal: normoactive bowel sounds, no tenderness, no distended, obese Integumentary: no rash Neurologic: no focal deficit, no asterixis, confused, disoriented Musculoskeletal: other (1+ edema of both LEs noted) Psychiatric: mood/affect appropriate, cooperative - Lab 08/21/16 04:34 08/23/16 04:20 Most recent lab results Calcium 8.4 mg/dL (8.4-10.2) 08/23/16 04:20 Phosphorus 4.10 mg/dL (2.5-4.5) 08/21/16 04:34 Magnesium 1.80 mg/dL (1.7-2.3) 08/21/16 04:34
[2016-08-23] MEDS: CATAPRES PO SCH ×3 (10:08→22:05)
[2016-08-23] MEDS: DIFLUCAN PO SCH (10:08)
[2016-08-23] MEDS: LOPRESSOR PO SCH ×2 (10:09→22:05)
[2016-08-23] MEDS: HEPARIN SUB-Q SCH ×2 (10:09→23:14)
--- NOTE | 2016-08-23 10:17 | Progress Note ---
Assessment and Plan 70 y.o. female s/p DKA with acute respiratory failure, acute on chronic renal failure, sepsis, hypernatremia, acute blood loss anemia, resolved rhabdomyolysis , oral dysphagia, and acute encephalopathy. 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 - HTN- stable on norvasc - left eye conjunctivitis- improving; vigamox x 7days - unsteady gait- improving gait since admission; now CGA/Supervision - DVT px- heparin - Patient Problems (1) Diabetes Current Visit: Yes Status: Acute Qualifiers: Diabetes mellitus type: type 2 Diabetes mellitus complication status: with hyperglycemia Diabetes mellitus complication detail: D Diabetic retinopathy severity: D Proliferative retinopathy type: P Diabetes mellitus macular edema: D Diabetes mellitus [facility] insulin use: without terminal computer operator use Laterality: L Chronic kidney disease stage: C Qualified Code(s): E11.65 - Type 2 diabetes mellitus with hyperglycemia (2) Pjbjo-lq-codqeku kidney injury Current Visit: Yes Status: Acute (3) Sepsis due to Samantha Current Visit: No Status: Acute (4) Acute hypernatremia Current Visit: Yes Status: Acute (5) Encephalopathy Current Visit: Yes Status: Acute (6) HTN (hypertension) Current Visit: Yes Status: Chronic Qualifiers: Hypertension type: essential hypertension Qualified Code(s): I10 - Essential (primary) hypertension (7) Conjunctivitis, left eye Current Visit: Yes Status: Acute Qualifiers: Conjunctivitis type: acute Blepharoconjunctivitis type: B Acute conjunctivitis type: unspecified Chronic conjunctivitis type: C Qualified Code(s): H10.32 - Unspecified acute conjunctivitis, left eye (8) Unsteady gait Current Visit: No Status: Acute Subjective Date of service: 08/23/16 Principal diagnosis: DKA with acute respiratory failure Interval history: Pt seen in room this AM; F/U IPR course, s/p DKA with acute respiratory failure. +pain at IV site; will d/c. No acute events over weekend; tolerating therapies well Objective - Constitutional Vitals: Vital Signs - 12hr 08/22/16 08/23/16 22:27 08:00 Temperature 98.3 F Pulse Rate 70 Pulse Rate [ 70 Left Brachial] Respiratory 20 Rate Blood Pressure 126/68 Blood Pressure 138/73 [Left Arm] O2 Sat by Pulse 97 Oximetry General appearance: Present: no acute distress - EENT Eyes: conjunctival injection (improved redness at left eye) ENT: hearing intact, poor dentition - Neck Neck: supple, normal ROM - Respiratory Respiratory effort: normal Respiratory: bilateral: CTA - Cardiovascular Heart Sounds: Present: S1 & S2 Extremity abnormal: edema (minimal pedal edema; much improved) - Gastrointestinal General gastrointestinal: Present: soft, non-tender, non-distended, normal bowel sounds - Integumentary Integumentary: clear - Neurologic Neurologic: CNII-XII intact, moves all extremities - Psychiatric Psychiatric: appropriate mood/affect, cooperative - Allied health notes Allied health notes reviewed: PT (CGA-supervision with gait up to 170 feet using RW), OT (supervision for transfers) - Labs CBC & Chem 7: 08/21/16 04:34 08/23/16 04:20 Labs: Abnormal lab results 08/22/16 08/22/16 08/22/16 Range/Units 12:40 16:28 20:45 Sodium (137-145) mmol/L Chloride (98-107) mmol/L BUN (7-17) mg/dL Creatinine (0.7-1.2) mg/dL POC Glucose 177 H 122 H 186 H (70-105) 08/23/16 Range/Units 04:20 Sodium 146 H (137-145) mmol/L Chloride 107.2 H (98-107) mmol/L BUN 39 H (7-17) mg/dL Creatinine 1.8 H (0.7-1.2) mg/dL POC Glucose (70-105)
[2016-08-23] MEDS: VIGAMOX OS SCH ×3 (11:30→22:04)
[2016-08-24] MEDS: VIGAMOX OS SCH ×3 (05:29→22:10)
[2016-08-24] MEDS: DULCOLAX PR PRN (06:16)
[2016-08-24] MEDS: CATAPRES PO SCH ×2 (09:48→15:12)
[2016-08-24] MEDS: DIFLUCAN PO SCH (09:48)
[2016-08-24] MEDS: HEPARIN SUB-Q SCH ×2 (09:49→22:10)
[2016-08-24] MEDS: LOPRESSOR PO SCH (09:49)
--- NOTE | 2016-08-24 14:48 | Progress Note ---
Assessment and Plan 70 y.o. female s/p DKA with acute respiratory failure, acute on chronic renal failure, sepsis, hypernatremia, acute blood loss anemia, resolved rhabdomyolysis , oral dysphagia, and acute encephalopathy. 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 On today, pt noted to have progressed to s/u with eating and UB dressing; SBA for bed/chair transfers and toilet transfers; supervision for bed mobility and wheelchair mobility; Katheryn for grooming, toileting, shower transfers; modA for bathing, LB dressing. Pt is ambulating 170 feet with RW at supervision; Katheryn for auditory comprehension; modA for problem solving and memory. Barriers- insulin; encephalopathy. Anticipate d/c by 08/27/16 - Patient Problems (1) Diabetes Current Visit: Yes Status: Acute Qualifiers: Diabetes mellitus type: type 2 Diabetes mellitus complication status: with hyperglycemia Diabetes mellitus complication detail: D Diabetic retinopathy severity: D Proliferative retinopathy type: P Diabetes mellitus macular edema: D Diabetes mellitus care home insulin use: without terminal gauger use Laterality: L Chronic kidney disease stage: C Qualified Code(s): E11.65 - Type 2 diabetes mellitus with hyperglycemia (2) Nssuj-gj-ylfjnsd kidney injury Current Visit: Yes Status: Acute (3) Sepsis due to Samantha Current Visit: No Status: Acute (4) Encephalopathy Current Visit: Yes Status: Acute (5) HTN (hypertension) Current Visit: Yes Status: Chronic Qualifiers: Hypertension type: essential hypertension Qualified Code(s): I10 - Essential (primary) hypertension (6) Conjunctivitis, left eye Current Visit: Yes Status: Acute Qualifiers: Conjunctivitis type: acute Blepharoconjunctivitis type: B Acute conjunctivitis type: unspecified Chronic conjunctivitis type: C Qualified Code(s): H10.32 - Unspecified acute conjunctivitis, left eye (7) Unsteady gait Current Visit: No Status: Acute Subjective Date of service: 08/24/16 Principal diagnosis: DKA with acute respiratory failure Interval history: Pt seen in room this AM; F/U IPR course, s/p DKA with acute respiratory failure. IV removed with reports pain relief at hand. Discussed insulin teaching in team conference on today. Pt not comfortable with giving herself insulin; also some concern of compliance with insulin at discharge Objective - Constitutional Vitals: Vital Signs - 12hr 08/24/16 08/24/16 08/24/16 08:00 09:48 09:49 Temperature 98.7 F Pulse Rate 76 76 Pulse Rate [ 76 Left Brachial] Respiratory 20 Rate Blood Pressure 138/73 138/73 Blood Pressure 138/73 [Left Arm] O2 Sat by Pulse 98 Oximetry General appearance: Present: no acute distress - EENT Eyes: conjunctival injection (stable at left eye) ENT: hearing intact - Neck Neck: supple, normal ROM - Respiratory Respiratory effort: normal Respiratory: bilateral: CTA - Cardiovascular Rhythm: regular Heart Sounds: Present: S1 & S2 Extremity abnormal: edema (bilateral ankles/feet) - Gastrointestinal General gastrointestinal: Present: soft, non-tender, non-distended, normal bowel sounds - Integumentary Integumentary: clear - Neurologic Neurologic: CNII-XII intact, moves all extremities - Psychiatric Psychiatric: cooperative (flat affect) - Labs CBC & Chem 7: 08/21/16 04:34 08/23/16 04:20 Labs: Abnormal lab results 08/24/16 08/24/16 Range/Units 06:52 12:05 POC Glucose 113 H 192 H (70-105)
--- NOTE | 2016-08-24 15:08 | Progress Note ---
Assessment and Plan - Patient Problems (1) Eggzp-gp-vpcxwcr kidney injury Current Visit: Yes Status: Acute Plan to address problem: Acute Kidney Injury superimposed on CKD in the setting of DKA, required hemodialysis. Patient was last dialyzed on 08/11/16. Renal function is much better. (2) Diabetic ketoacidosis Current Visit: No Status: Acute Qualifiers: Diabetes mellitus type: type 2 Diabetes mellitus complication detail: with coma Qualified Code(s): E13.11 - Other specified diabetes mellitus with ketoacidosis with coma Plan to address problem: Resolved. (3) Anemia Current Visit: Yes Status: Acute Qualifiers: Anemia type: other cause Iron deficiency anemia type: I Vitamin B12 deficiency anemia type: V Folate deficiency anemia type: F Bone marrow failure anemia type: B Hemolytic anemia type: H Other causes of anemia: O Plan to address problem: H/H stable. (4) HTN (hypertension) Current Visit: Yes Status: Chronic Qualifiers: Hypertension type: essential hypertension Qualified Code(s): I10 - Essential (primary) hypertension Plan to address problem: BP well controlled. Due edema of both legs, start on HCTZ. Decreased Clonidine. MAHIN hose. (5) Rhabdomyolysis Current Visit: No Status: Acute Qualifiers: Rhabdomyolysis type: R Encounter type: E Plan to address problem: Resolved. (6) Encephalopathy Current Visit: Yes Status: Acute Plan to address problem: Improving. Subjective Date of service: 08/24/16 Principal diagnosis: DKA with acute respiratory failure Interval history: Patient complaint of bilateral leg swelling. Objective - Vital Signs Vital signs: Vital Signs - 12hr 08/24/16 08/24/16 08/24/16 08:00 09:48 09:49 Temperature 98.7 F Pulse Rate 76 76 Pulse Rate [ 76 Left Brachial] Respiratory 20 Rate Blood Pressure 138/73 138/73 Blood Pressure 138/73 [Left Arm] O2 Sat by Pulse 98 Oximetry - General Appearance General appearance: well-developed, well-nourished, appears stated age, obese, other (no distress) EENT: ATNC, mucous membranes moist, hearing intact, vision intact Neck: supple Respiratory: Present: Clear to Ascultation Cardiology: regular, S1S2, no murmurs Gastrointestinal: normoactive bowel sounds, no tenderness, no distended, obese Integumentary: no rash Neurologic: no focal deficit, no asterixis, confused, disoriented Musculoskeletal: other (1+ pitting edema of both LEs noted) Psychiatric: mood/affect appropriate, cooperative - Lab 08/21/16 04:34 08/23/16 04:20 Most recent lab results Calcium 8.4 mg/dL (8.4-10.2) 08/23/16 04:20 Phosphorus 4.10 mg/dL (2.5-4.5) 08/21/16 04:34 Magnesium 1.80 mg/dL (1.7-2.3) 08/21/16 04:34
[2016-08-24] MEDS ORDERED: GLUCOPHAGE PO SCH (17:00)
[2016-08-24] MEDS: TYLENOL PO PRN (17:27)
[2016-08-24] MEDS ORDERED: CATAPRES PO SCH (19:45)
[2016-08-25] MEDS: CATAPRES PO SCH ×4 (05:11→23:39)
[2016-08-25] MEDS: LOPRESSOR PO SCH ×3 (05:14→23:41)
[2016-08-25] MEDS: TYLENOL PO PRN ×2 (06:14→23:40)
--- NOTE | 2016-08-25 07:55 | Consultation ---
History of Present Illness - Reason for Consult Consult date: 08/25/16 Diabetes mellitus - History of Present Illness 70 y/o woman who was admitted to the hospital after she was found unresponsive she was intubated around her found to have DKA, ARF, multisystem organ failure, rhabdomyolysis, hyperglycemia without known to be diabetic, ct brain was negative. She was intubated and also noted to have Samantha bacteremia and blood in urine. End MSSA and tracheal aspirate. She was treated with fluconazole. She'll subsequently stabilized and transferred to the medical floor and after she was denied placement in LTAC she was transferred to rehabilitation facility about proper for this. The patient also had received packed red blood cell transfusion. I'll call blood was negative. This was also felt to be dilutional. She did have rhabdomyolysis as mentioned this was treated appropriate. The rehabilitation patient has been doing very well but on discharge planning was noted that this patient will not be able to do insulin treatment for herself at home. This will be safe discharge for her would be consulted to assist with further options and diabetic management. Unfortunately the patient due to her renal function is unable to be placed on metformin. She had this point denies any polyuria or polyphagia polydipsia. She does not have any good support system to assist with insulin therapy. ROS Constitutional: No fever, fatigue or weight loss. Skin: No rash. Eyes: No recent vision problems or eye pain. ENT: No congestion, ear pain, or sore throat. Endocrine: No thyroid problems. Cardiovascular: No chest pain. Respiratory: No cough, shortness of breath, congestion, or wheezing. Gastrointestinal: No abdominal pain, nausea, vomiting, or diarrhea. Genitourinary: No dysuria. Musculoskeletal: No joint swelling. Neurologic: No seizures. Hematologic: No unusual bruising or bleeding. Psychiatric: No psychiatric problems, hallucinations or depression. All other systems reviewed and otherwise negative. Past History Past Medical History: diabetes (newly diagnosed), hypertension, renal failure Past Surgical History: hysterectomy Social history: , lives with family. denies: smoking, alcohol abuse Family history: hypertension, other (renal failure) Medications and Allergies Allergies Allergy/AdvReac Type Severity Reaction Status Date / Time No Known Allergies Allergy Verified 08/01/16 01:22 Home Medications Medication Instructions Recorded Confirmed Last Taken Type ALBUTEROL Inhaler [ProAir HFA 2 puff IH QID PRN #30 inhalation 08/17/16 Unknown Rx Inhaler] Bisacodyl [Dulcolax suppos] 10 mg MT QDAY PRN #10 supp.rect 08/17/16 08/18/16 Unknown Rx Ferrous Sulfate [Feosol 325 MG tab] 325 mg PO BID #60 tablet 08/17/16 08/18/16 Unknown Rx Fluconazole [Diflucan TAB] 100 mg PO QDAY #10 tablet 08/17/16 08/18/16 Unknown Rx Insulin NPH, Human [NovoLIN N] 10 unit SUB-Q BIDDIAB #30 units 08/17/16 Unknown Rx Metoprolol [Lopressor TAB] 100 mg PO BID #60 tablet 08/17/16 08/18/16 Unknown Rx Min Oil/Petrolatum [Artificial 1 applic OU Q4HR PRN #1 tube 08/17/16 08/18/16 Unknown Rx Tears Ophth Oint] amLODIPine [Norvasc] 10 mg PO QDAY #30 tablet 08/17/16 08/18/16 Unknown Rx cloNIDine [Catapres] 0.2 mg PO TID #60 tablet 08/17/16 08/18/16 Unknown Rx Active Meds: Active Medications Acetaminophen (Tylenol) 650 mg PO Q4H PRN PRN Reason: Pain MILD(1-3)/Fever >100.5/[place]ENTON Last Admin: 08/25/16 06:14 Dose: 650 mg Bisacodyl (Dulcolax) 10 mg MT QDAY PRN PRN Reason: Constipation unrelieved by MOM Last Admin: 08/24/16 06:16 Dose: 10 mg Clonidine HCl (Catapres) 0.1 mg PO TID [facility] Last Admin: 08/25/16 05:11 Dose: 0.1 mg Dextrose (D50w (25gm)) 50 ml IV PRN PRN PRN Reason: Hypoglycemia Fluconazole (Diflucan) 100 mg PO QDAY [facility] Stop: 08/25/16 07:59 Last Admin: 08/24/16 09:48 Dose: 100 mg Heparin Sodium (Porcine) (Heparin) 5,000 unit SUB-Q Q12HR [facility] Last Admin: 08/24/16 09:49 Dose: 5,000 unit Hydrochlorothiazide (Hctz) 12.5 mg PO QDAY [facility] Insulin Human Regular (Novolin R) 0 units SUB-Q ACHS [facility] PRN Reason: Protocol Last Admin: 08/24/16 17:30 Dose: Not Given Metoprolol Tartrate (Lopressor) 100 mg PO BID [facility] Last Admin: 08/25/16 05:14 Dose: 100 mg Moxifloxacin HCl (Vigamox) 1 drops OS Q8HR [facility] Stop: 08/27/16 10:21 Last Admin: 08/24/16 22:10 Dose: 1 drops Multi-Ingred Cream/Lotion/Oil/Oint (Artificial Tears Ophth Oint) 1 applic OU Q4HR PRN PRN Reason: Dry Eye(s) Last Admin: 08/19/16 22:50 Dose: 1 applic Senna (Senokot) 8.6 mg PO Q12H PRN PRN Reason: Laxative Effect Exam - Physical Exam Narrative exam: VITAL SIGNS: Reviewed. GENERAL: The patient appeared well nourished and normally developed. Vital signs as documented. HEAD: No signs of head trauma. EYES: Pupils are equal. Extraocular motions intact. EARS: Hearing grossly intact. MOUTH: Oropharynx is normal. NECK: No adenopathy, no JVD. CHEST: Chest with clear breath sounds bilaterally. No wheezes, rales, or rhonchi. CARDIAC: Regular rate and rhythm. S1 and S2, without murmurs, gallops, or rubs. VASCULAR: No Edema. Peripheral pulses normal and equal in all extremities. ABDOMEN: Soft, without detectable tenderness. No sign of distention. No rebound or guarding, and no masses palpated. Bowel Sounds normal. MUSCULOSKELETAL: Good range of motion of all major joints. Extremities without clubbing, cyanosis or edema. NEUROLOGIC EXAM: Alert and oriented x 3. No focal sensory or strength deficits. Speech normal. Follows commands. PSYCHIATRIC: Mood normal. SKIN: No rash or lesions. - Constitutional Vitals: Temp Pulse Resp BP Pulse Ox 98.4 F 61 18 127/64 98 08/24/16 20:00 08/25/16 05:14 08/24/16 20:00 08/25/16 05:14 08/24/16 20:00 Results - Labs CBC & Chem 7: 08/21/16 04:34 08/23/16 04:20 Labs: Abnormal lab results 08/24/16 08/24/16 08/24/16 Range/Units 12:05 16:23 21:31 POC Glucose 192 H 126 H 210 H (70-105) 08/25/16 Range/Units 07:01 POC Glucose 113 H (70-105) Assessment and Plan 70 y/o woman who was admitted to the hospital after she was found unresponsive she was intubated around her found to have DKA, ARF, multisystem organ failure, rhabdomyolysis, hyperglycemia without known to be diabetic, ct brain was negative. She was intubated and also noted to have Samantha bacteremia and blood in urine. End MSSA and tracheal aspirate. She was treated with fluconazole. She'll subsequently stabilized and transferred to the medical floor and after she was denied placement in LTAC she was transferred to rehabilitation facility about proper for this. The patient also had received packed red blood cell transfusion. I'll call blood was negative. This was also felt to be dilutional. She did have rhabdomyolysis as mentioned this was treated appropriate. The rehabilitation patient has been doing very well but on discharge planning was noted that this patient will not be able to do insulin treatment for herself at home. This will be safe discharge for her would be consulted to assist with further options and diabetic management. Unfortunately the patient due to her renal function is unable to be placed on metformin. She had this point denies any polyuria or polyphagia polydipsia. She does not have any good support system to assist with insulin therapy. Concerned about blood sugar has been well controlled we will be starting her on low-dose glipizide. I've educated her on monitoring her blood sugars she will be followed with outpatient therapy. * Diabetes mellitus * Acute on chronic kidney disease secondary to ATN * Iron deficiency anemia * Possible early dementia * Hypertension * Unsteady gait * Status post sepsis secondary to fungal UTI * Status post DKA Plan * We'll start patient on glipizide 2.5 mg daily monitor blood glucose. I have provided extensive education on hyper glycemia and hypoglycemic symptoms. * Continue our current therapy * Nephrology following * Blood pressure has remained stable. * Outpatient therapy. * I recommended must follow-up with primary care physician also monitor blood glucose. * DVT GI prophylaxis * Thank YOU for allowing us to take part in the care of your patient as information becomes available more therapeutic or diagnostic measures been intermittently. We'll follow with you while in the Rehab
[2016-08-25] MEDS: VIGAMOX OS SCH ×2 (07:58→14:53)
[2016-08-25] MEDS ORDERED: HCTZ PO SCH ×2 (08:00→21:22)
[2016-08-25] MEDS: SENOKOT PO PRN (09:26)
[2016-08-25] MEDS: HEPARIN SUB-Q SCH (09:27)
--- NOTE | 2016-08-25 11:47 | Progress Note ---
Assessment and Plan 70 y.o. female s/p DKA with acute respiratory failure, acute on chronic renal failure, sepsis, hypernatremia, acute blood loss anemia, resolved rhabdomyolysis , oral dysphagia, and acute encephalopathy. 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 - HTN- stable - left eye conjunctivitis- improving; vigamox through 08/27 - unsteady gait- S/CGA for gait - DVT px- heparin - Patient Problems (1) Diabetes Current Visit: Yes Status: Acute Qualifiers: Diabetes mellitus type: type 2 Diabetes mellitus complication status: with hyperglycemia Diabetes mellitus complication detail: D Diabetic retinopathy severity: D Proliferative retinopathy type: P Diabetes mellitus macular edema: D Diabetes mellitus 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 term care social worker insulin use: without nursing home use Laterality: L Chronic kidney disease stage: C Qualified Code(s): E11.65 - Type 2 diabetes mellitus with hyperglycemia (2) Beimf-oz-lrllnko kidney injury Current Visit: Yes Status: Acute Qualifiers: Acute renal failure type: A Chronic kidney disease stage: C (3) Sepsis due to Samantha Current Visit: No Status: Acute (4) Encephalopathy Current Visit: Yes Status: Acute (5) HTN (hypertension) Current Visit: Yes Status: Chronic Qualifiers: Hypertension type: essential hypertension Qualified Code(s): I10 - Essential (primary) hypertension (6) Conjunctivitis, left eye Current Visit: Yes Status: Acute Qualifiers: Conjunctivitis type: acute Blepharoconjunctivitis type: B Acute conjunctivitis type: unspecified Chronic conjunctivitis type: C Qualified Code(s): H10.32 - Unspecified acute conjunctivitis, left eye (7) Unsteady gait Current Visit: No Status: Acute Subjective Date of service: 08/25/16 Principal diagnosis: DKA with acute respiratory failure Interval history: Pt seen in dining room this AM; F/U IPR course, s/p DKA with acute respiratory failure. c/o constipation this AM; given senna. Case discussed with IM; glipizide to be initiated for DM management Objective - Constitutional Vitals: Vital Signs - 12hr 08/25/16 08/25/16 08/25/16 05:11 05:14 08:00 Temperature 98.8 F Pulse Rate 61 61 Pulse Rate [ 68 Left Brachial] Respiratory 16 Rate Blood Pressure 127/64 127/64 Blood Pressure 132/81 [Right Arm] O2 Sat by Pulse 98 Oximetry 08/25/16 08/25/16 09:03 09:04 Temperature Pulse Rate 68 68 Pulse Rate [ Left Brachial] Respiratory Rate Blood Pressure 132/81 132/81 Blood Pressure [Right Arm] O2 Sat by Pulse Oximetry General appearance: Present: no acute distress - EENT Eyes: EOM intact ENT: hearing intact - Neck Neck: supple, normal ROM - Respiratory Respiratory effort: normal Extremity abnormal: edema (stable BLE) - Gastrointestinal General gastrointestinal: Present: soft, non-tender, non-distended, normal bowel sounds - Neurologic Neurologic: CNII-XII intact, moves all extremities - Psychiatric Psychiatric: cooperative - Allied health notes Allied health notes reviewed: PT (S-CGA for transfers; CGA for gait), OT (Katheryn for transfers, toileting, grooming; supervision for UB dressing; modA for LB dressing and bathing) - Labs CBC & Chem 7: 08/21/16 04:34 08/23/16 04:20 Labs: Abnormal lab results 08/24/16 08/24/16 08/24/16 Range/Units 12:05 16:23 21:31 POC Glucose 192 H 126 H 210 H (70-105) 08/25/16 Range/Units 07:01 POC Glucose 113 H (70-105)
--- NOTE | 2016-08-25 17:18 | Progress Note ---
Assessment and Plan - Patient Problems (1) Qfmik-mk-fxixoxo kidney injury Current Visit: Yes Status: Acute Qualifiers: Acute renal failure type: A Chronic kidney disease stage: C Plan to address problem: Acute Kidney Injury superimposed on CKD in the setting of DKA, required hemodialysis. Patient was last dialyzed on 08/11/16. Renal function is much better. (2) Diabetic ketoacidosis Current Visit: No Status: Acute Qualifiers: Diabetes mellitus type: type 2 Diabetes mellitus complication detail: with coma Qualified Code(s): E13.11 - Other specified diabetes mellitus with ketoacidosis with coma Plan to address problem: Resolved. (3) Anemia Current Visit: Yes Status: Acute Qualifiers: Anemia type: other cause Iron deficiency anemia type: I Vitamin B12 deficiency anemia type: V Folate deficiency anemia type: F Bone marrow failure anemia type: B Hemolytic anemia type: H Other causes of anemia: O Plan to address problem: H/H stable. (4) HTN (hypertension) Current Visit: Yes Status: Chronic Qualifiers: Hypertension type: essential hypertension Qualified Code(s): I10 - Essential (primary) hypertension Plan to address problem: BP well controlled. Increase HCTZ due to edema. MAHIN menard. (5) Rhabdomyolysis Current Visit: No Status: Acute Qualifiers: Rhabdomyolysis type: R Encounter type: E (6) Encephalopathy Current Visit: Yes Status: Acute Plan to address problem: Improving. (7) Muscular deconditioning Current Visit: Yes Status: Acute Plan to address problem: Rehab. Subjective Date of service: 08/25/16 Principal diagnosis: DKA with acute respiratory failure Interval history: Patient continues to have bilateral leg swelling. Objective - Vital Signs Vital signs: Vital Signs - 12hr 08/25/16 08/25/16 08/25/16 08:00 09:03 09:04 Temperature 98.8 F Pulse Rate 68 68 Pulse Rate [ 68 Left Brachial] Respiratory 16 Rate Blood Pressure 132/81 132/81 Blood Pressure 132/81 [Right Arm] O2 Sat by Pulse 98 Oximetry 08/25/16 14:51 Temperature Pulse Rate 72 Pulse Rate [ Left Brachial] Respiratory Rate Blood Pressure 141/73 Blood Pressure [Right Arm] O2 Sat by Pulse Oximetry - General Appearance General appearance: well-developed, well-nourished, appears stated age, obese, other (no distress) EENT: ATNC, mucous membranes moist, hearing intact, vision intact Neck: supple Respiratory: Present: Clear to Ascultation Cardiology: regular, S1S2, no murmurs Gastrointestinal: normoactive bowel sounds, no tenderness, no distended, obese Integumentary: no rash Neurologic: no focal deficit, no asterixis, confused, disoriented Musculoskeletal: other (1+ edema of both LEs noted) Psychiatric: mood/affect appropriate, cooperative - Lab 08/21/16 04:34 08/23/16 04:20 Most recent lab results Calcium 8.4 mg/dL (8.4-10.2) 08/23/16 04:20 Phosphorus 4.10 mg/dL (2.5-4.5) 08/21/16 04:34 Magnesium 1.80 mg/dL (1.7-2.3) 08/21/16 04:34
[2016-08-25] MEDS: GLUCOTROL XL PO SCH (17:50)
[2016-08-25] MEDS: HCTZ PO SCH (23:41)
[2016-08-26] MEDS: TYLENOL PO PRN ×3 (04:26→15:30)
[2016-08-26] MEDS: SENOKOT PO PRN ×2 (04:27→21:51)
[2016-08-26] MEDS: HEPARIN SUB-Q SCH ×3 (04:51→21:52)
[2016-08-26] MEDS: VIGAMOX OS SCH ×4 (04:54→21:49)
[2016-08-26 05:52] LABS: BUN/Creatinine Ratio 21.05; Calcium 8.8 mg/dL (8.4-10.2); Chloride 104.4 mmol/L (98-107); Potassium 4.7 mmol/L (3.6-5.0)
--- NOTE | 2016-08-26 09:02 | Progress Note ---
Assessment and Plan - Patient Problems (1) Saffb-dc-tqefuog kidney injury Current Visit: Yes Status: Acute Qualifiers: Acute renal failure type: A Chronic kidney disease stage: C Plan to address problem: Acute Kidney Injury superimposed on CKD in the setting of DKA, required hemodialysis. Patient was last dialyzed on 08/11/16. Renal function is better and stable. CKD stage 3. (2) Diabetic ketoacidosis Current Visit: No Status: Acute Qualifiers: Diabetes mellitus type: type 2 Diabetes mellitus complication detail: with coma Qualified Code(s): E13.11 - Other specified diabetes mellitus with ketoacidosis with coma Plan to address problem: Resolved. (3) Anemia Current Visit: Yes Status: Acute Qualifiers: Anemia type: other cause Iron deficiency anemia type: I Vitamin B12 deficiency anemia type: V Folate deficiency anemia type: F Bone marrow failure anemia type: B Hemolytic anemia type: H Other causes of anemia: O Plan to address problem: H/H stable. (4) HTN (hypertension) Current Visit: Yes Status: Chronic Qualifiers: Hypertension type: essential hypertension Qualified Code(s): I10 - Essential (primary) hypertension Plan to address problem: BP well controlled. Increase HCTZ due to edema. MAHIN menard. (5) Rhabdomyolysis Current Visit: No Status: Acute Qualifiers: Rhabdomyolysis type: R Encounter type: E Plan to address problem: Resolved. (6) Encephalopathy Current Visit: Yes Status: Acute Plan to address problem: Improving. (7) Muscular deconditioning Current Visit: Yes Status: Acute Plan to address problem: Rehab. Subjective Date of service: 08/26/16 Principal diagnosis: DKA with acute respiratory failure Interval history: Patient is doing ok. Objective - Vital Signs Vital signs: Vital Signs - 12hr 08/25/16 08/25/16 23:39 23:41 Pulse Rate 66 66 Blood Pressure 140/65 140/65 - General Appearance General appearance: well-developed, well-nourished, appears stated age, obese, other (no distress) EENT: ATNC, PERRL, hearing intact, vision intact Neck: supple Respiratory: Present: Clear to Ascultation Cardiology: regular, S1S2, no murmurs Gastrointestinal: normoactive bowel sounds, no tenderness, no distended, obese Integumentary: no rash Neurologic: no focal deficit, no asterixis, disoriented, CN 3-12 intact Musculoskeletal: other (trace pedal edema) Psychiatric: mood/affect appropriate, cooperative - Lab 08/21/16 04:34 08/26/16 04:31 Most recent lab results Calcium 8.8 mg/dL (8.4-10.2) 08/26/16 04:31 Phosphorus 4.10 mg/dL (2.5-4.5) 08/21/16 04:34 Magnesium 1.80 mg/dL (1.7-2.3) 08/21/16 04:34
[2016-08-26] MEDS: LOPRESSOR PO SCH ×2 (09:14→21:49)
[2016-08-26] MEDS: CATAPRES PO SCH ×3 (09:14→21:49)
[2016-08-26] MEDS: HCTZ PO SCH (09:15)
[2016-08-26] MEDS: DULCOLAX PR PRN (09:15)
[2016-08-26] MEDS: GLUCOTROL XL PO SCH (09:15)
[2016-08-26] MEDS: CEPHULAC PO SCH (13:00)
--- NOTE | 2016-08-26 14:14 | Progress Note ---
Assessment and Plan Assessment and plan: 70 y/o woman who was admitted to the hospital after she was found unresponsive she was intubated around her found to have DKA, ARF, multisystem organ failure, rhabdomyolysis, hyperglycemia without known to be diabetic, ct brain was negative. She was intubated and also noted to have Samantha bacteremia and blood in urine. End MSSA and tracheal aspirate. She was treated with fluconazole. She'll subsequently stabilized and transferred to the medical floor and after she was denied placement in LTAC she was transferred to rehabilitation facility about proper for this. The patient also had received packed red blood cell transfusion. I'll call blood was negative. This was also felt to be dilutional. She did have rhabdomyolysis as mentioned this was treated appropriate. The rehabilitation patient has been doing very well but on discharge planning was noted that this patient will not be able to do insulin treatment for herself at home. This will be safe discharge for her would be consulted to assist with further options and diabetic management. Unfortunately the patient due to her renal function is unable to be placed on metformin. She had this point denies any polyuria or polyphagia polydipsia. She does not have any good support system to assist with insulin therapy. Concerned about blood sugar has been well controlled we will be starting her on low-dose glipizide. I've educated her on monitoring her blood sugars she will be followed with outpatient therapy. * Diabetes mellitus * Acute on chronic kidney disease secondary to ATN * Iron deficiency anemia * Possible early dementia * Hypertension * Unsteady gait * Status post sepsis secondary to fungal UTI * Status post DKA Plan * Continue glipizide 2.5 mg daily monitor blood glucose. Patient's son was in the room I did reinforce diabetic education and signs of symptoms of hypoglycemia and hyperglycemia discussed * Nephrology following * Blood pressure has remained stable. * Outpatient therapy. * I recommended must follow-up with primary care physician also monitor blood glucose. * DVT GI prophylaxis * Patient, discharged on glipizide 2.5 mg and adjusted by primary care physician based on blood glucose levels. History Interval history: Patient seen and examined this morning in no acute distress at bedside. No adverse event reported by nurses staff. Diabetic education reinforced. Hospitalist Physical - Physical exam Narrative exam: VITAL SIGNS: Reviewed. GENERAL: The patient appeared well nourished and normally developed. Vital signs as documented. HEAD: No signs of head trauma. EYES: Pupils are equal. Extraocular motions intact. EARS: Hearing grossly intact. MOUTH: Oropharynx is normal. NECK: No adenopathy, no JVD. CHEST: Chest with clear breath sounds bilaterally. No wheezes, rales, or rhonchi. CARDIAC: Regular rate and rhythm. S1 and S2, without murmurs, gallops, or rubs. VASCULAR: No Edema. Peripheral pulses normal and equal in all extremities. ABDOMEN: Soft, without detectable tenderness. No sign of distention. No rebound or guarding, and no masses palpated. Bowel Sounds normal. MUSCULOSKELETAL: Good range of motion of all major joints. Extremities without clubbing, cyanosis or edema. NEUROLOGIC EXAM: Alert and oriented x 3. No focal sensory or strength deficits. Speech normal. Follows commands. PSYCHIATRIC: Mood normal. SKIN: No rash or lesions. - Constitutional Vitals: Temp Pulse Resp BP Pulse Ox 97.8 F 70 20 152/83 97 08/26/16 07:16 08/26/16 07:16 08/26/16 07:16 08/26/16 07:16 08/26/16 07:16 General appearance: Present: no acute distress Results - Labs CBC & Chem 7: 08/21/16 04:34 08/26/16 04:31 Labs: Laboratory Last Values WBC 6.4 K/mm3 (4.5-11.0) 08/21/16 04:34 RBC 3.43 M/mm3 (3.65-5.03) L 08/21/16 04:34 Hgb 9.0 gm/dl (10.1-14.3) L 08/21/16 04:34 Hct 28.6 % (30.3-42.9) L 08/21/16 04:34 MCV 83 fl (79-97) 08/21/16 04:34 MCH 26 pg (28-32) L 08/21/16 04:34 MCHC 31 % (30-34) 08/21/16 04:34 RDW 19.3 % (13.2-15.2) H 08/21/16 04:34 Plt Count 308 K/mm3 (140-440) 08/21/16 04:34 Lymph % (Auto) 31.8 % (13.4-35.0) 08/21/16 04:34 [place] % (Auto) 8.5 % (0.0-7.3) H 08/21/16 04:34 Eos % (Auto) 5.9 % (0.0-4.3) H 08/21/16 04:34 Baso % (Auto) 0.5 % (0.0-1.8) 08/21/16 04:34 Lymph # 2.0 K/mm3 (1.2-5.4) 08/21/16 04:34 [place] # 0.5 K/mm3 (0.0-0.8) 08/21/16 04:34 Eos # 0.4 K/mm3 (0.0-0.4) 08/21/16 04:34 Baso # 0.0 K/mm3 (0.0-0.1) 08/21/16 04:34 Seg Neutrophils % 53.3 % (40.0-70.0) 08/21/16 04:34 Seg Neutrophils # 3.4 K/mm3 (1.8-7.7) 08/21/16 04:34 Sodium 143 mmol/L (137-145) 08/26/16 04:31 Potassium 4.7 mmol/L (3.6-5.0) 08/26/16 04:31 Chloride 104.4 mmol/L (98-107) 08/26/16 04:31 Carbon Dioxide 25 mmol/L (22-30) 08/26/16 04:31 Anion Gap 18 mmol/L 08/26/16 04:31 BUN 40 mg/dL (7-17) H 08/26/16 04:31 Creatinine 1.9 mg/dL (0.7-1.2) H 08/26/16 04:31 Estimated GFR 31 ml/min 08/26/16 04:31 BUN/Creatinine Ratio 21.05 % 08/26/16 04:31 Glucose 127 mg/dL (65-100) H 08/26/16 04:31 POC Glucose 217 (70-105) H 08/26/16 11:24 Calcium 8.8 mg/dL (8.4-10.2) 08/26/16 04:31 Phosphorus 4.10 mg/dL (2.5-4.5) 08/21/16 04:34 Magnesium 1.80 mg/dL (1.7-2.3) 08/21/16 04:34 Total Bilirubin 0.30 mg/dL (0.1-1.2) 08/21/16 04:34 AST 18 units/L (5-40) 08/21/16 04:34 ALT 16 units/L (7-56) 08/21/16 04:34 Alkaline Phosphatase 90 units/L (35-129) 08/21/16 04:34 Total Protein 6.7 g/dL (6.3-8.2) 08/21/16 04:34 Albumin 3.1 g/dL (3.9-5) L 08/21/16 04:34 Albumin/Globulin Ratio 0.9 % 08/21/16 04:34
--- NOTE | 2016-08-26 17:38 | Progress Note ---
Assessment and Plan 70 y.o. female s/p DKA with acute respiratory failure, acute on chronic renal failure, sepsis, hypernatremia, acute blood loss anemia, resolved rhabdomyolysis , oral dysphagia, and acute encephalopathy. - Newly diagnosed DM; s/p DKA- stable on glipizide; will provide prescription for glucometer at discharge - acute on chronic renal failure- Nephrology following; BUN/Cr stable - sepsis- resolved; +madiha in blood and urine on acute care admission; completed ABX treatment - acute encephalopathy- secondary to respiratory failure associated with DKA; ongoing memory deficits; will be recommended for ongoing [employer] outpt - HTN- stable - left eye conjunctivitis- improving; vigamox through 08/27 - unsteady gait- Supervision for gait - DVT px- heparin - family training initiated on today; will be completed tomorrow prior to scheduled discharge - Patient Problems (1) Diabetes Current Visit: Yes Status: Acute Qualifiers: Diabetes mellitus type: type 2 Diabetes mellitus complication status: with hyperglycemia Diabetes mellitus complication detail: D Diabetic retinopathy severity: D Proliferative retinopathy type: P Diabetes mellitus macular edema: D Diabetes mellitus fpc insulin use: without mold filler and drainer use Laterality: L Chronic kidney disease stage: C Qualified Code(s): E11.65 - Type 2 diabetes mellitus with hyperglycemia (2) Rhyfy-ri-aiwtcau kidney injury Current Visit: Yes Status: Acute Qualifiers: Acute renal failure type: A Chronic kidney disease stage: C (3) Encephalopathy Current Visit: Yes Status: Acute (4) HTN (hypertension) Current Visit: Yes Status: Chronic Qualifiers: Hypertension type: essential hypertension Qualified Code(s): I10 - Essential (primary) hypertension (5) Conjunctivitis, left eye Current Visit: Yes Status: Acute Qualifiers: Conjunctivitis type: acute Blepharoconjunctivitis type: B Acute conjunctivitis type: unspecified Chronic conjunctivitis type: C Qualified Code(s): H10.32 - Unspecified acute conjunctivitis, left eye (6) Unsteady gait Current Visit: No Status: Acute Subjective Date of service: 08/26/16 Principal diagnosis: DKA with acute respiratory failure Interval history: Pt seen in room this afternoon; F/U IPR course, s/p DKA with acute respiratory failure. family present for family training; extensive education provided regarding ongoing follow-up care; need to monitor blood sugars and diet at discharge. Resolved constipation this afternoon Objective - Constitutional Vitals: Vital Signs - 12hr 08/26/16 07:16 Temperature 97.8 F Pulse Rate [ 70 Left Brachial] Respiratory 20 Rate Blood Pressure 152/83 [Left Arm] O2 Sat by Pulse 97 Oximetry General appearance: Present: no acute distress, obese - EENT Eyes: conjunctival injection (much improved at left eye) ENT: hearing intact - Neck Neck: supple, normal ROM - Respiratory Respiratory effort: normal Extremity abnormal: edema (stable BLE ) - Gastrointestinal General gastrointestinal: Present: soft, non-tender - Musculoskeletal Musculoskeletal: other (unchanged contractures at right fingers) - Neurologic Neurologic: moves all extremities - Psychiatric Psychiatric: cooperative (flat affect) - Allied health notes Allied health notes reviewed: PT (supervision for transfers and gait; CGA/SBA for stairs), ST (ongoing memory deficits) - Labs CBC & Chem 7: 08/21/16 04:34 08/26/16 04:31 Labs: Abnormal lab results 08/25/16 08/25/16 08/26/16 Range/Units 17:16 21:46 04:31 BUN 40 H (7-17) mg/dL Creatinine 1.9 H (0.7-1.2) mg/dL Glucose 127 H (65-100) mg/dL POC Glucose 186 H 174 H (70-105) 08/26/16 08/26/16 08/26/16 Range/Units 05:53 11:24 16:15 BUN (7-17) mg/dL Creatinine (0.7-1.2) mg/dL Glucose (65-100) mg/dL POC Glucose 135 H 217 H 143 H (70-105)
[2016-08-27] MEDS: VIGAMOX OS SCH (06:22)
[2016-08-27 07:37] VITALS: BP 134/74
--- NOTE | 2016-08-27 08:05 | Progress Note ---
Assessment and Plan - Patient Problems (1) Izpjq-xc-qtpstni kidney injury Current Visit: Yes Status: Acute Qualifiers: Acute renal failure type: A Chronic kidney disease stage: C Plan to address problem: Management per nephrology (2) Diabetes Current Visit: Yes Status: Acute Qualifiers: Diabetes mellitus type: type 2 Diabetes mellitus complication status: with hyperglycemia Diabetes mellitus complication detail: D Diabetic retinopathy severity: D Proliferative retinopathy type: P Diabetes mellitus macular edema: D Diabetes mellitus terminal operator insulin use: without terminal operator use Laterality: L Chronic kidney disease stage: C Qualified Code(s): E11.65 - Type 2 diabetes mellitus with hyperglycemia Plan to address problem: Diabetes well controlled. Continue current regimen. Patient should follow with the primary care physician as an outpatient. We'll sign off (3) HTN (hypertension) Current Visit: Yes Status: Chronic Qualifiers: Hypertension type: essential hypertension Qualified Code(s): I10 - Essential (primary) hypertension Plan to address problem: Blood pressure well controlled History Interval history: Patient feels well today. Hospitalist Physical - Constitutional Vitals: Temp Pulse Resp BP Pulse Ox 98.0 F 64 16 134/74 97 08/27/16 07:36 08/27/16 07:36 08/27/16 07:36 08/27/16 07:36 08/27/16 07:36 General appearance: Present: no acute distress, obese - EENT Eyes: Present: PERRL, EOM intact ENT: hearing intact, clear oral mucosa, dentition normal - Neck Neck: Present: supple, normal ROM - Respiratory Respiratory effort: normal Respiratory: bilateral: CTA - Cardiovascular Rhythm: regular Heart Sounds: Present: S1 & S2 - Extremities Extremities: no ischemia, No edema - Abdominal General gastrointestinal: soft, non-tender, non-distended, normal bowel sounds - Psychiatric Psychiatric: appropriate mood/affect, intact judgment & insight - Neurologic Neurologic: CNII-XII intact, moves all extremities Results - Labs CBC & Chem 7: 08/21/16 04:34 08/26/16 04:31 Labs: Laboratory Last Values WBC 6.4 K/mm3 (4.5-11.0) 08/21/16 04:34 RBC 3.43 M/mm3 (3.65-5.03) L 08/21/16 04:34 Hgb 9.0 gm/dl (10.1-14.3) L 08/21/16 04:34 Hct 28.6 % (30.3-42.9) L 08/21/16 04:34 MCV 83 fl (79-97) 08/21/16 04:34 MCH 26 pg (28-32) L 08/21/16 04:34 MCHC 31 % (30-34) 08/21/16 04:34 RDW 19.3 % (13.2-15.2) H 08/21/16 04:34 Plt Count 308 K/mm3 (140-440) 08/21/16 04:34 Lymph % (Auto) 31.8 % (13.4-35.0) 08/21/16 04:34 [place] % (Auto) 8.5 % (0.0-7.3) H 08/21/16 04:34 Eos % (Auto) 5.9 % (0.0-4.3) H 08/21/16 04:34 Baso % (Auto) 0.5 % (0.0-1.8) 08/21/16 04:34 Lymph # 2.0 K/mm3 (1.2-5.4) 08/21/16 04:34 [place] # 0.5 K/mm3 (0.0-0.8) 08/21/16 04:34 Eos # 0.4 K/mm3 (0.0-0.4) 08/21/16 04:34 Baso # 0.0 K/mm3 (0.0-0.1) 08/21/16 04:34 Seg Neutrophils % 53.3 % (40.0-70.0) 08/21/16 04:34 Seg Neutrophils # 3.4 K/mm3 (1.8-7.7) 08/21/16 04:34 Sodium 143 mmol/L (137-145) 08/26/16 04:31 Potassium 4.7 mmol/L (3.6-5.0) 08/26/16 04:31 Chloride 104.4 mmol/L (98-107) 08/26/16 04:31 Carbon Dioxide 25 mmol/L (22-30) 08/26/16 04:31 Anion Gap 18 mmol/L 08/26/16 04:31 BUN 40 mg/dL (7-17) H 08/26/16 04:31 Creatinine 1.9 mg/dL (0.7-1.2) H 08/26/16 04:31 Estimated GFR 31 ml/min 08/26/16 04:31 BUN/Creatinine Ratio 21.05 % 08/26/16 04:31 Glucose 127 mg/dL (65-100) H 08/26/16 04:31 POC Glucose 87 (70-105) 08/27/16 07:00 Calcium 8.8 mg/dL (8.4-10.2) 08/26/16 04:31 Phosphorus 4.10 mg/dL (2.5-4.5) 08/21/16 04:34 Magnesium 1.80 mg/dL (1.7-2.3) 08/21/16 04:34 Total Bilirubin 0.30 mg/dL (0.1-1.2) 08/21/16 04:34 AST 18 units/L (5-40) 08/21/16 04:34 ALT 16 units/L (7-56) 08/21/16 04:34 Alkaline Phosphatase 90 units/L (35-129) 08/21/16 04:34 Total Protein 6.7 g/dL (6.3-8.2) 08/21/16 04:34 Albumin 3.1 g/dL (3.9-5) L 08/21/16 04:34 Albumin/Globulin Ratio 0.9 % 08/21/16 04:34
[2016-08-27] MEDS: HCTZ PO SCH (08:53)
[2016-08-27] MEDS: GLUCOTROL XL PO SCH (08:54)
[2016-08-27] MEDS: CEPHULAC PO SCH (08:54)
[2016-08-27] MEDS: LOPRESSOR PO SCH (08:55)
[2016-08-27] MEDS: CATAPRES PO SCH ×2 (08:56→15:03)
--- NOTE | 2016-08-27 09:46 | Discharge Summary ---
Providers - Providers Date of Admission: 08/17/16 19:47 Date of discharge: 08/27/16 Attending physician: JESSE WYNN 08/17/16 21:18 Occupational Therapy Evaluate and Treat [CONS] Routine Comment: Reason For Exam: s/p DKA, acute resp failure Physical Therapy Evaluation and Treat [CONS] Routine Comment: Reason For Exam: s/p DKA, acute resp failure Speech Therapy Evaluation and Treat [CONS] Routine Reason For Exam: acute encephalopathy 08/18/16 08:48 Consult to Physician [CONS] Routine Consulting Provider: RACHANA REID Reason For Exam: renal failure; known to you Place consult to:: DR Reid Notified:: yes Phone number called:: [phone] Was contact made?: Yes Time called:: 09:13 08/20/16 14:56 Consult to Dietitian/Nutrition [CONS] Routine Physician Instructions: Reason For Exam: new diabetic Reason for Consult: Diet education 08/24/16 18:48 Consult to Physician [CONS] Routine Consulting Provider: ALDO ROMEO [facility] Reason For Exam: DM; not safe for home insulin Place consult to:: Dr. Camejo Notified:: Phone number called:: [phone] Was contact made?: Yes If yes, spoke with:: Dr. Camejo Time called:: 07:44 Primary care physician: Dr. Korin Scott Hospitalization Reason for admission: DKA, acute resp failure Condition: Stable Hospital course: 70 y.o. female found down in her home by her ; required intubation due to acute respiratory failure, later self extubated on 08/11 to 2L nasal cannula ( not on oxygen at home). Pt noted to be in DKA (blood sugar of 690) and acute renal failure (BUN/Cr, 50/4.7) upon presentation; required insulin drip. HgA1c noted to be 10; pt and unaware of diagnosis of DM prior to admission. Pt also required emergent hemodialysis (NEW), which was discontinued during acute care course; treated for sepsis, Samantha in blood and urine; hypernatremia (max 150); acute blood loss anemia (lowest H/H, 5.9/18.6), s/p 3U pRBCs; rhabdomyolysis with max CK 2522; acute encephalopathy. Once stable, pt was seen and evaluated by therapies and found to have difficulty ambulating and dysphagia; started on pureed diet. Pt tolerated IRU course well. Diet has been upgraded to mechanical soft diet with ground meats. Diabetic education has been provided to both pt, and children present at family training. Pt was initially on insulin on admission; however, due to patient's fear of giving insulin and concern for compliance, pt was changed to glipizide; blood sugars have remained stable. Nephrology has continued to follow pt; BUN/Cr are currently stable. Constipation resolved prior to d/c home. Functionally, pt has progressed well. On admission evaluations, pt required S/SBA for bed mobility, Katheryn/CGA for transfers and gait, ambulating 170 feet with RW; supervision for grooming; Katheryn for toilet transfers and shower transfers; maxA for toileting and bathing; totalA for LB dressing. At the time of discharge, pt has progressed to independent for bed mobility; Kalpesh for transfers; supervision for gait 340 feet with RW; supervision for stairs; Kalpesh for eating; Katheryn for toileting; modA for bathing and LB dressing. Family training has been completed prior to discharge. Pt is stable for d/c home. >30 mins spent on discharge process, medication reconciliation; education on checking blood sugars and blood pressures at home. 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: without long chain dyeing machine operator use Laterality: L Chronic kidney disease stage: C Qualified Code(s): E11.65 - Type 2 diabetes mellitus with hyperglycemia (2) Yhpuw-hh-qdvirzv kidney injury Status: Acute Qualifiers: Acute renal failure type: A Chronic kidney disease stage: C (3) Encephalopathy Status: Acute (4) HTN (hypertension) Status: Chronic Qualifiers: Hypertension type: essential hypertension Qualified Code(s): I10 - Essential (primary) hypertension (5) Conjunctivitis, left eye Status: Acute Qualifiers: Conjunctivitis type: acute Blepharoconjunctivitis type: B Acute conjunctivitis type: unspecified Chronic conjunctivitis type: C Qualified Code(s): H10.32 - Unspecified acute conjunctivitis, left eye (6) Unsteady gait Status: Acute Core Measure Documentation - Palliative Care Palliative Care/ Comfort Measures: Not Applicable - Core Measures Any of the following diagnoses?: none Exam - Constitutional Vitals: Temp Pulse Resp BP Pulse Ox 98.0 F 68 16 134/74 97 08/27/16 07:36 08/27/16 08:56 08/27/16 07:36 08/27/16 08:56 08/27/16 07:36 General appearance: Present: no acute distress - EENT Eyes: Present: conjunctival injection (improving at left eye) ENT: hearing intact - Neck Neck: Present: supple, normal ROM - Respiratory Respiratory effort: normal - Extremities Extremity abnormal: edema (stable) - Abdominal General gastrointestinal: Present: soft, non-tender - Integumentary Integumentary: Present: clear - Psychiatric Psychiatric: cooperative - Neurologic Neurologic: CNII-XII intact, moves all extremities Plan Activity: no driving until cleared by PCP, fall precautions Weight Bearing Status: Full Weight Bearing Diet: low salt, diabetic Special Instructions: record daily BP diary, record blood sugar diary ( presciption provided for glucometer, lancets and strips), physical therapy, occupational therapy, other (outpt therapy at [facility]) Durable Medical Equipment Needed Upon Discharge: Walker-Rolling, Wheelchair, Bedside Commode, other (tub bench; [facility]) Additional Instructions: Pt and family educated on DM and HTN management Follow up with: KORIN SCOTT MD [Staff Physician] - 7 Days RAY VELASQUEZ MD [Staff Physician] - 7 Days RACHANA REID MD [Staff Physician] - 7 Days Prescriptions: cloNIDine [Catapres] 0.1 mg PO TID #90 tablet Ferrous Sulfate [Feosol 325 MG tab] 325 mg PO BID #60 tablet glipiZIDE XL [Glucotrol Xl] 2.5 mg PO DAILY@0800 #30 tablet Hydrochlorothiazide [HCTZ] 25 mg PO QDAY #30 tablet Metoprolol [Lopressor TAB] 100 mg PO BID #60 tablet Other Discharge Orders: Glucometer (Amb) Location: Determined By Patient Glucometer supplies[Amb] Location: Determined By Patient
[2016-08-27] MEDS: HEPARIN SUB-Q SCH (10:25)
--- NOTE | 2016-08-27 10:58 | Progress Note ---
Assessment and Plan - Patient Problems (1) Vanzd-nt-lugrgza kidney injury Current Visit: Yes Status: Acute Qualifiers: Acute renal failure type: A Chronic kidney disease stage: C Plan to address problem: Acute Kidney Injury superimposed on CKD in the setting of DKA, required hemodialysis. Patient was last dialyzed on 08/11/16. Renal function is better and stable. CKD stage 3. F/u with me in 2 weeks. D/w her at the bedside. (2) Diabetic ketoacidosis Current Visit: No Status: Acute Qualifiers: Diabetes mellitus type: type 2 Diabetes mellitus complication detail: with coma Qualified Code(s): E13.11 - Other specified diabetes mellitus with ketoacidosis with coma Plan to address problem: Resolved. (3) Anemia Current Visit: Yes Status: Acute Qualifiers: Anemia type: other cause Iron deficiency anemia type: I Vitamin B12 deficiency anemia type: V Folate deficiency anemia type: F Bone marrow failure anemia type: B Hemolytic anemia type: H Other causes of anemia: O Plan to address problem: H/H stable. (4) HTN (hypertension) Current Visit: Yes Status: Chronic Qualifiers: Hypertension type: essential hypertension Qualified Code(s): I10 - Essential (primary) hypertension Plan to address problem: BP well controlled. Low salt diet. (5) Rhabdomyolysis Current Visit: No Status: Acute Qualifiers: Rhabdomyolysis type: R Encounter type: E Plan to address problem: Resolved. (6) Encephalopathy Current Visit: Yes Status: Acute Plan to address problem: Improving. (7) Muscular deconditioning Current Visit: Yes Status: Acute Plan to address problem: Rehab. Subjective Date of service: 08/27/16 Principal diagnosis: DKA with acute respiratory failure Interval history: Patient is doing better. Objective - Vital Signs Vital signs: Vital Signs - 12hr 08/27/16 08/27/16 08/27/16 07:36 08:55 08:56 Temperature 98.0 F Pulse Rate 68 68 Pulse Rate [ 64 Left Brachial] Respiratory 16 Rate Blood Pressure 134/74 134/74 Blood Pressure 134/74 [Left Arm] O2 Sat by Pulse 97 Oximetry - General Appearance General appearance: well-developed, well-nourished, appears stated age, obese, other (no distress) EENT: ATNC, PERRL, hearing intact, vision intact Neck: supple Respiratory: Present: Clear to Ascultation Cardiology: regular, S1S2, no murmurs Gastrointestinal: normoactive bowel sounds, no tenderness, no distended, obese Integumentary: no rash Neurologic: no focal deficit, no asterixis, confused, CN 3-12 intact Musculoskeletal: other (trace pedal edema) Psychiatric: mood/affect appropriate, cooperative - Lab 08/21/16 04:34 08/26/16 04:31 Most recent lab results Calcium 8.8 mg/dL (8.4-10.2) 08/26/16 04:31 Phosphorus 4.10 mg/dL (2.5-4.5) 08/21/16 04:34 Magnesium 1.80 mg/dL (1.7-2.3) 08/21/16 04:34
[2016-08-27] MEDS: TYLENOL PO PRN (11:23)
== END 2016-08-27 15:54 | disposition home or self-care (01) | DRG 637 ==
LOC: 3B 19:47
PROVIDERS: ADMIT Family Medicine; ATTEND Family Medicine
DX: E13.11 Other specified diabetes mellitus with ketoacidosis with coma (principal); J96.01 Acute respiratory failure with hypoxia; G93.40 Encephalopathy, unspecified; B37.7 Candidal sepsis; N17.0 Acute kidney failure with tubular necrosis; E87.0 Hyperosmolality and hypernatremia; M62.82 Rhabdomyolysis; I12.9 Hypertensive chronic kidney disease with stage 1 through stage 4 chronic kidney disease, or unspecified chronic kidney disease; D63.1 Anemia in chronic kidney disease; H10.32 Unspecified acute conjunctivitis, left eye; R13.11 Dysphagia, oral phase; R26.81 Unsteadiness on feet; N18.3 Chronic kidney disease, stage 3 (moderate); Z90.710 Acquired absence of both cervix and uterus; Z82.49 Family history of ischemic heart disease and other diseases of the circulatory system
CPT/HCPCS: 36415; 80048; 80053; 82962; 83735; 84100; 85025; J1644; J1815

== ENCOUNTER 2016-11-05 10:10 | Inpatient (IN) | payer MEDICARE ==
--- NOTE | 2016-11-05 10:19 | Emergency Department Report ---
HPI - General Chief Complaint: Neuro Symptoms/Deficit Time Seen by Provider: 11/05/16 10:17 - HPI HPI: This is a 70-year-old Afro-[place] Citizen female presents to the emergency department by EMS from home with complaint of altered mental status and possible stroke. The patient was last seen normal/baseline at around 5:30 in the morning by her . She has a past medical history of hypertension and some questionable history of diabetes from her most recent visit here. The patient is currently altered, not following many commands, and appears to be a poor historian. She is usually ambulatory, independent of ADLs at baseline. She did not receive anything for symptoms in route. ED Past Medical Hx - Past Medical History Previous Medical History?: Yes Hx Hypertension: Yes Hx Diabetes: Yes (DKA 08/01/2016-) Hx Headaches / Migraines: Yes Additional medical history: unknown patient came in unresponsive - Surgical History Hx Pacemaker: No - Social History Smoking Status: Never Smoker Substance Use Type: None - Medications Home Medications: Home Medications Medication Instructions Recorded Confirmed Last Taken Type Ferrous Sulfate [Feosol 325 MG tab] 325 mg PO BID #60 tablet 08/27/16 11/05/16 Unknown Rx Hydrochlorothiazide [HCTZ] 25 mg PO QDAY #30 tablet 08/27/16 11/05/16 Unknown Rx Metoprolol [Lopressor TAB] 100 mg PO BID #60 tablet 08/27/16 11/05/16 Unknown Rx cloNIDine [Catapres] 0.1 mg PO TID #90 tablet 08/27/16 11/05/16 Unknown Rx glipiZIDE XL [Glucotrol Xl] 2.5 mg PO DAILY@0800 #30 tablet 08/27/16 11/05/16 Unknown Rx ED Review of Systems ROS: Stated complaint: POSS CVA Other details as noted in HPI Comment: Unobtainable due to pts medical conditions Physical Exam - Physical Exam Physical Exam: GENERAL: The patient is well-developed well-nourished. HEENT: Normocephalic. Atraumatic. Extraocular motions are intact but the patient does not appear to be tracking. Patient has moist mucous membranes. PERRL is equal reactive to light bilaterally. Tongue is midline. NECK: Supple. Trachea is mid line. CHEST/LUNGS: Clear to auscultation. There is no respiratory distress noted. HEART/CARDIOVASCULAR: Regular. There is no tachycardia. There is no gallop rub or murmur. ABDOMEN: Abdomen is soft, nontender. Patient has normal bowel sounds. There is no abdominal distention. SKIN: Skin is warm and dry. NEURO: The patient is awake but does not appear to be following any commands. She withdraws from painful stimuli. There does not appear to be any sensory deficits. No obvious pronator drift as patient can hold upper extremities off of the gurney. Patient seen moving all 4 extremities. She appears to have aphasia. MUSCULOSKELETAL: There is no tenderness or deformity. There is no evidence of acute injury. ED Course - Consultations Consultation #1: I spoke with the telemedicine neurologist, Dr. Moraes, regarding the case presentation. He agrees that we are outside the window for TPA but the patient may be displaying some aphasia and he recommended CT angiography of the head and neck. However due to the patient's renal insufficiency, the patient will have a stat MRA of the head. 11/05/16 11:05 ED Medical Decision Making - Lab Data Result diagrams: 11/05/16 10:06 11/05/16 10:06 - Radiology Data Radiology results: report reviewed MRA of the head is essentially a normal examination. CT of the head without contrast does not show any acute process. - Medical Decision Making 70-year-old female presents the emergency department with some altered mental status and what appears to be aphasia since 5:30 in the morning. Code stroke was called but the patient was out of the TPA window. However after CT head was negative, I spoke with [facility], who recommended CT angiography of the head and neck. However secondary to renal insufficiency we got a MRA instead which eventually did not show any acute process and was read as essentially a negative examination. Labs did not show any etiology of the patient's symptoms. Since there was no obvious sign of thrombus, the patient did not need transfer to a higher institution. Patient appears to have a CVA versus altered mental status but will be admitted to the hospital for further evaluation. Accepted for admission by the hospitalist, Dr Rojas. - Differential Diagnosis CVA, TIA, hypoglycemia, hypertensive crisis Critical Care Time: Yes Critical care time in (mins) excluding proc time.: 35 Critical care attestation.: If time is entered above; I have spent that time in minutes in the direct care of this critically ill patient, excluding procedure time. Critical care time spent on this patient during her initial evaluation, multiple re-evaluations, discussion with the telemedicine neurologist, ordering and interpretation of labs, evaluation of the imaging read/results, multiple discussions with family, and disposition planning. Critical Care Time: 35 mins ED Disposition Clinical Impression: Hypertensive urgency, Renal insufficiency, Acute encephalopathy Altered mental status Qualifiers: Altered mental status type: transient alteration of awareness Qualified Code(s) : R40.4 - Transient alteration of awareness CVA (cerebral vascular accident) Qualifiers: CVA mechanism: unspecified Qualified Code(s): I63.9 - Cerebral infarction, unspecified Disposition: DC-09 OP ADMIT IP TO THIS HOSP Is pt being admited?: Yes Condition: Poor Time of Disposition: 17:00
[2016-11-05 10:29] LABS: BUN/Creatinine Ratio 28.33; Calcium 9.3 mg/dL (8.4-10.2); Chloride 101.3 mmol/L (98-107); Potassium 4.4 mmol/L (3.6-5.0)
[2016-11-05 10:31] LABS: INR 0.91 (0.87-1.13)
[2016-11-05 10:32] LABS: Partial Thromboplastin Time 30.7 Sec. (24.2-36.6)
--- NOTE | 2016-11-05 10:36 | Cat Scan Report ---
CT scan of head without contrast: Stroke protocol. History: Neurodeficit Findings: Ventricles are midline in location. Mild volume loss. Asymmetric hypodensity right frontoparietal region without interval change. No evidence of acute ischemia, hemorrhage or mass. No extra-axial fluid collection. Normal sinuses and mastoid air cells. Impression: No acute intracranial abnormality.
[2016-11-05 10:48] LABS: Basophils % (Auto) 0.3 % (0.0-1.8); Eosinophils % (Auto) 0.5 % (0.0-4.3); Hematocrit 33.8 % (30.3-42.9); Hemoglobin 10.4 gm/dl (10.1-14.3); Mean Corpuscular HGB Conc 31 % (30-34); Mean Corpuscular Volume 78 fl (79-97); Platelet Count 223 K/mm3 (140-440); Red Blood Count 4.37 M/mm3 (3.65-5.03); Red Cell Distribution Width 14.2 % (13.2-15.2); White Blood Count 10.9 K/mm3 (4.5-11.0)
[2016-11-05 10:50] LABS: Mean Corpuscular Hemoglobin 24 pg (28-32)
--- NOTE | 2016-11-05 11:41 | Admit Criteria Form ---
Admission Criteria Documentation: NEUROLOGY GRG Clinical Indications for Admission to Inpatient Care (Place ' X' for any and all applicable criteria): Hospital admission is needed for appropriate care of the patient because of 1 or more of the following: [ ]I. Encephalitis [ ]II. Severe TELECOMMUNICATIONS SPECIALIST infections indicated by 1 or more of the following(1)(2)(3) : [ ]a) Intracranial abscess [ ]b) Spinal abscess or myelitis [ ]c) Tuberculous or other nonbacterial, nonviral TELECOMMUNICATIONS SPECIALIST infection(8) [ ]III. Vasculitis and 1 or more of the following(14)(15): []a) Altered mental status that is severe or persistent or other acute neurologic change []b) Psychosis []c) Seizure [ ]IV. Status epilepticus or repetitive seizures not controlled with emergent treatment [A] (7)(8) [ ]V. Altered mental status that is severe or persistent [ ]. Transient alteration in consciousness with high-risk etiology; examples include (12)(13): [ ]a) Cardiovascular source [ ]b) Cataplexy [ ]VII. Cerebral aneurysm requiring ANY ONE of the following(14): [ ]a) IV antihypertensives or vasoactive agents [ ]b) Sedation and analgesia for suspected leak [ ]c) Need for external ventricular drainage and cerebral perfusion pressure monitoring [ ]d) Emergent evaluation to determine need for surgical clipping or endovascular coiling by interventional radiology. If surgery is required ( Also use Craniotomy, Supratentorial, for Surgery of Bleeding Intracranial Aneurysm (for bleeding aneurysm) or Craniotomy, Supratentorial (for nonbleeding aneurysm) as appropriate. [ ]VIII. New-onset severe neurologic symptom requiring inpatient care indicated by ANY ONE of the following: [ ]a) Aphasia(15) [ ]b) Weakness (grade 3 or less) [ ]c) Paralysis (eg, hemiplegia) [ ]d) Spasticity(16) [ ]e) Dystonia [ ]e) Ataxia(17) [ ]f) Amnesia(18) [ ]g) Involuntary movements(19) [ ]h) Vertigo [ ] Visual loss [ ]i) Other severe neurologic finding (eg, papilledema, mass effect on imaging, myoclonus not treatable at alternative level of care (eg, observation care) [ ]IX. Guillain-Forest syndrome(20) [ ]X. Myasthenia gravis crisis or inpatient monitoring need as indicated by 1 or more of the following(21): [ ]a) Intensive treatment (eg, course of plasmapheresis) with inadequate outpatient situation to monitor patients status [ ]b) Inadequate airway protection [ ]c) Respiratory insufficiency requiring intubation or inpatient. monitoring [ ]d) Progressive dysphagia with failure to thrive [ ]XI. Multiple sclerosis or other acute demyelinating disease requiring inpatient care as indicated by 1 or more of the following (22)(23): [ ]a) Acute severe deterioration requiring inpatient treatment (eg, IV steroids, plasmapheresis, close observation) [ ]b) Acute complication requiring inpatient care (eg, sepsis, severe decubitus, aspiration) [ ]XII.Parkinson disease requiring inpatient care (Also use Optimal Recovery Care Criteria or General Recovery Criteria as appropriate) indicated by 1 or more of the following(25): [ ]a) Infection (eg, aspiration pneumonia) not treatable at alternative level of care [ ]b Dehydration that is severe or persistent [ ]c) Life-threatening agitation or psychotic behavior not treatable on emergency, observation care, or alternative level (eg, residential) basis [ ]d) Severe medication withdrawal effects (eg, freezing, neuroleptic malignant syndrome) not responsive to emergency and observation care treatment ( as appropriate) [ ]e) Other severe manifestation not treatable at alternative level of care [ ]XII. Amyotrophic lateral sclerosis with inpatient care needs as indicated by ANY ONE of the following(26): [ ]a) Acute complications (eg, aspiration pneumonia, sepsis ) requiring inpatient care ( see other optimal Recovery Guideline as appropriate) [ ]b) Dehydration that is severe persistent AND artificial support desired [ ]c) Inadequate airway protection AND artificial support desired [ ]d) Severe ventilatory insufficiency AND artificial support desired [ ]XIII. Myasthenia gravis crisis or inpatient monitoring need as indicated by 1 or more of the following(21): [] a) Inadequate airway protection []b) Respiratory insufficiency requiring intubation or inpatient monitoring []c) Progressive dysphagia with failure to thrive []d) Intensive treatment (e.g., course of plasmapheresis) with inadequate outpatient situation to monitor patients status [ ]XIV. Multiple sclerosis or other acute demyelinating disease requiring inpatient care indicated by 1 or more of the following[C](36)(43)(44)(45)(46): []a) Acute severe deterioration requiring inpatient treatment (eg, IV steroids, plasmapheresis, close observation) []b) Acute complication requiring inpatient care (eg, sepsis, severe decubitus, aspiration) [ ]XV. Intracranial hypertension (e.g., pseudotumor cerebri) requiring inpatient care (e.g., acute visual loss, inadequate oral intake) (47)(48)(49) [ ]XVI. Parkinson disease requiring inpatient care (Also use Optimal Recovery Care Criteria or General Recovery Criteria as appropriate) indicated by 1 or more of the following(25): [] a) Infection (e.g., aspiration pneumonia) not treatable at alternative level of care []b) Volume depletion not responsive to emergency and observation care treatment (as appropriate) []c) Life-threatening agitation or psychotic behavior not treatable on emergency, observation care, or alternative level (e.g., residential) basis []d) Severe medication withdrawal effects (e.g., freezing, neuroleptic malignant syndrome) not responsive to emergency and observation care treatment (as appropriate) []e) Other severe manifestation not treatable at alternative level of care [ ]XVII. Amyotrophic lateral sclerosis with inpatient care needs as indicated by1 or more of the following(42): []a) Acute complications (eg, aspiration pneumonia, sepsis) requiring inpatient care (see other Optimal Recovery Guideline or General Recovery Guideline as appropriate) []b) Dehydration that is severe or persistent AND artificial support desired []c) Inadequate airway protection AND artificial support desired []d) Severe ventilatory insufficiency AND artificial support desired [ ]XVIII. Severe myopathy, neuropathy, or other neuromuscular disease indicated by 1 or more of the following(42)(52)(53)(54): []a ) New-onset severe diffuse weakness (eg, strength 3/5 or less) []b) Severe dysphagia []c) Dyspnea at rest or with minimal exertion (new) []d) Inadequate airway protection []e) Inadequate ventilation indicated by 1 or more of the following : i) Partial pressure of carbon dioxide greater than 44 mm Hg ( 5.9 kPa) (new) ii) Reduced peak expiratory flow rate (new) iii) Vital capacity less than 50% of predicted (less than 15 mL/kg) iv) Peak inspiratory force less negative than -30 cm H2O (- 2942 Pa) [ ]XVII.Complications of congenital or degenerative disease (eg, infection, seizures, dehydration, injury) not responsive to emergency and observation care treatment (as appropriate ) [C](16)(29)(30) [ ]XVIII.Suspected or confirmed nerve or muscle toxic injury, including ANY ONE of the following: [ ]a) Rhabdomyolysis(31) i) Acute renal failure ii) Dehydration that is severe or persistent iii) Altered mental status that is severe or persistent iv) Electrolyte abnormality that remains after emergency or observation level care ( as appropriate) [ ]b) Botulism(32) [ ]c) Other severe toxin-induced sign or symptom [ ]XIX. Neurologic trauma requiring inpatient treatment (medical) indicated by ANY ONE of the following(33)(34): [ ]a) Vital signs or neurologic signs more frequently than every 4 hours [ ]b) Hyperosmolar therapy [ ]c) Respiratory monitoring [ ]d) Intracranial pressure monitoring and treatment [ ]e) Stabilization and immobilization device placement (eg, braces, body jacket) [ ]f) Intubation & mechanical ventilation for airway protection or therapeutic hyperventilation [ ]g) Other treatment or monitoring needed that requires inpatient level of care [ ]XX.Complications of neurologic devices (eg, ventricular shunt, neurostimulator) requiring 1 or more of the following(35)(36): [ ]a) IV antibiotics with monitoring while awaiting culture results [ ]b) Monitoring for hydrocephalus [ X]XXI. Neurology condition symptom, or finding for which emergency and observation care have failed or are not considered appropriate. See General Criteria: Observation Care ISC, General Admission Criteria GRG, or Pediatric General Admission Criteria GRG guideline as appropriate. The original [facility] [employer] content created by [facility] has been revised. The portions of the content which have been revised are identified through the use of italic text or in bold, and [facility] has neither reviewed nor approved the modified material. All other unmodified content is copyright [facility] Please see references footnoted in the original [facility] edition 2016 Admission Criteria Met: Yes
--- NOTE | 2016-11-05 14:05 | Magnetic Resonance Report ---
MRA of brain: History: CVA, rule out thrombus. Findings: The vessels of [place] of [place] are widely patent. No evidence of stenoses, occlusion, dissection, aneurysm or vascular malformation. The vertebral arteries are codominant with normal basilar artery. The communicating vessels and appears unremarkable. Impression: Essentially negative MRA of brain .
[2016-11-05] MEDS ORDERED: SODIUM CHLORIDE FLUSH SYRINGE 10 ML IV PRN (15:00)
[2016-11-05] MEDS ORDERED: DULCOLAX PR PRN (15:00)
[2016-11-05] MEDS ORDERED: MILK OF MAGNESIA PO PRN (15:00)
[2016-11-05] MEDS ORDERED: DUONEB *Not for PRN Use IH (15:00)
[2016-11-05] MEDS ORDERED: PROVENTIL IH PRN (15:10)
[2016-11-05] MEDS: TYLENOL PO PRN (17:18)
--- NOTE | 2016-11-05 18:32 | History and Physical Report ---
History of Present Illness Date of admission: 11/05/16 15:00 Chief complaint: confusion, Not acting right History of present illness: 70 YO Female with DM, HTN, Migraine FENTON, presents to ED for evaluation. Pt unable to provide history, but patient and daughter at bedside during exam and interview and provide history. Pt family states that pt was last at her baseline at bedtime on the evening prior to admission. Pt was noticed by family members to be acting confused, unable to follow commands, and unable to move her right arm and leg. EMS notified. Pt transported to [facility]. No reports of fever, chills, CP, Palpitations, NVD, syncope, trauma, BRBPR, Unintentional weight loss, night sweats, productive cough. Past History Past Medical History: diabetes, hypertension, other (migraine FENTON) Past Surgical History: No surgical history, Other (reviewed) Social history: , lives with family. denies: smoking, alcohol abuse, prescription drug abuse Family history: diabetes, hypertension Medications and Allergies Allergies Allergy/AdvReac Type Severity Reaction Status Date / Time No Known Allergies Allergy Verified 08/01/16 01:22 Home Medications Medication Instructions Recorded Confirmed Last Taken Type Ferrous Sulfate [Feosol 325 MG tab] 325 mg PO BID #60 tablet 08/27/16 11/05/16 1 Day Ago Rx Hydrochlorothiazide [HCTZ] 25 mg PO QDAY #30 tablet 08/27/16 11/05/16 1 Day Ago Rx Metoprolol [Lopressor TAB] 100 mg PO BID #60 tablet 08/27/16 11/05/16 1 Day Ago Rx cloNIDine [Catapres] 0.1 mg PO TID #90 tablet 08/27/16 11/05/16 1 Day Ago Rx glipiZIDE XL [Glucotrol Xl] 2.5 mg PO DAILY@0800 #30 tablet 08/27/16 11/05/16 1 Day Ago Rx Active Meds: Active Medications Acetaminophen (Tylenol) 650 mg PO Q4H PRN PRN Reason: Pain, Mild (1-3) Last Admin: 11/05/16 17:18 Dose: 650 mg Albuterol (Proventil) 2.5 mg IH Q4HRT PRN PRN Reason: Shortness Of Breath Aspirin (Aspirin) 325 mg PO QDAY PELON Bisacodyl (Dulcolax) 10 mg [place] QDAY PRN PRN Reason: Constipation Clonidine HCl (Catapres) 0.1 mg PO TID PELON Ferrous Sulfate (Feosol) 325 mg PO BID PELON Hydrochlorothiazide (Hctz) 25 mg PO QDAY PELON Magnesium Hydroxide (Milk Of Magnesia) 30 ml PO Q4H PRN PRN Reason: Constipation Metoprolol Tartrate (Lopressor) 100 mg PO BID PELON Simvastatin (Zocor) 20 mg PO QHS PELON Sodium Chloride (Sodium Chloride Flush Syringe 10 Ml) 10 ml IV PRN PRN PRN Reason: LINE FLUSH Review of Systems ROS unobtainable: due to mental status Exam - Constitutional Vitals: Temp Pulse Resp BP Pulse Ox 97.8 F 67 13 170/87 98 11/05/16 10:38 11/05/16 13:55 11/05/16 13:55 11/05/16 13:55 11/05/16 13:55 General appearance: Present: mild distress - EENT Eyes: Present: PERRL ENT: hearing intact, clear oral mucosa - Neck Neck: Present: supple, normal ROM - Respiratory Respiratory effort: normal Respiratory: bilateral: diminished - Cardiovascular Heart Sounds: Present: S1 & S2. Absent: rub, click - Extremities Extremities: pulses symmetrical, No edema Extremity abnormal: edema Peripheral Pulses: within normal limits - Abdominal General gastrointestinal: Present: soft, non-tender, non-distended, normal bowel sounds Female genitourinary: Present: normal - Integumentary Integumentary: Present: clear, dry, normal turgor - Musculoskeletal Musculoskeletal: right sided weakness - Psychiatric Psychiatric: no intact judgment & insight, no memory intact - Neurologic Neurologic: no CNII-XII intact, moves all extremities, no gait normal Results - Labs CBC & Chem 7: 11/05/16 10:06 11/05/16 10:06 Assessment and Plan - Patient Problems (1) CVA (cerebral vascular accident) Current Visit: Yes Status: Acute Qualifiers: CVA mechanism: unspecified Precerebral and cerebral artery: P Laterality of affected vessel: L Qualified Code(s): I63.9 - Cerebral infarction, unspecified Plan to address problem: Stroke protocol: Antiplatelet therapy, neuro checks, CT head, MRI/MRA Brain, Carotid Doppler, Echo, supportive care. (2) ARF (acute renal failure) Current Visit: Yes Status: Acute Qualifiers: Acute renal failure type: A Plan to address problem: IVF replacement, monitor UOP q shift, (3) Acute encephalopathy Current Visit: Yes Status: Acute Plan to address problem: Metabolic: IVF, supportive care, treat CVA, (4) Hypertensive urgency Current Visit: Yes Status: Acute Plan to address problem: Monitor BP q shift, permissive hypertension overnight. Goal systolic BP 165- 185. (5) Diabetes Current Visit: Yes Status: Acute Qualifiers: Diabetes mellitus type: D Diabetes mellitus complication status: D Diabetes mellitus complication detail: D Diabetic retinopathy severity: D Proliferative retinopathy type: P Diabetes mellitus macular edema: D Diabetes mellitus alf insulin use: D Laterality: L Chronic kidney disease stage: C Plan to address problem: ADA diet, insulin, accu check (6) DVT prophylaxis Current Visit: Yes Status: Acute
[2016-11-05] MEDS: CATAPRES PO SCH (20:22)
[2016-11-05] MEDS: FEOSOL PO SCH (21:52)
[2016-11-05] MEDS: LOPRESSOR PO SCH (21:52)
[2016-11-05] MEDS: ZOCOR PO SCH (21:52)
[2016-11-06] MEDS: CATAPRES PO SCH ×3 (08:45→22:02)
[2016-11-06] MEDS: ASPIRIN PO SCH ×2 (08:45→10:40)
[2016-11-06] MEDS: LOPRESSOR PO SCH ×3 (08:45→22:02)
[2016-11-06] MEDS: FEOSOL PO SCH ×3 (08:45→22:02)
[2016-11-06] MEDS: HCTZ PO SCH ×2 (08:45→10:40)
--- NOTE | 2016-11-06 13:37 | Progress Note ---
Assessment and Plan Assessment and plan: Patient is 70-year-old woman with a history of hypertension, diabetes mellitus type 2, CK D stage4 last creatinine here was 1.9 on 08/27/2016. She also had echocardiogram 08/01/2016 which read as estimated EF 50-55%, mild concentric left ventricular hypertrophy, mild MR, mild AR, left atrium is mildly dilated. She presented to the hospital with altered mental status. MRA of the head read as negative. Carotid ultrasounds been negative. Her blood pressure is 200 601 111. Troponin was mildly elevated at 0.030. Blood sugars uncontrolled 290. -Acute metabolic encephalopathy may be due to malignant hypertension: Control blood pressure with antihypertensive. -Altered mental status possible stroke: I ordered MRI of the brain, Treat with aspirin and statins -No acute renal failure but CK D stage IV: Repeat BMP a.m. -uncontrolled type 2 diabetes mellitus for hyperglycemia hyperosmolar: Add sliding scale and ADA diet -DVT prophylaxis: Use subcutaneous heparin -Elevated troponin. She has had in the past, repeat levels and if trending up will consult cardiology -Malignant hypertension: Treated with antihypertensive History Interval history: Patient seen and examined. Follow up on current diagnosis/altered mental status. Overnight uneventful. No cp, sob, n/v or severe headaches. Imaging, old records, testing, labs, nursing notes reviewed. Hospitalist Physical - Physical exam Narrative exam: GEN: WDWN, NAD, AWAKE, ALERT, ORIENTATED x 3 HEENT: NCAT, PERRL, EOMI, OP CLEAR NECK: SUPPLE, NO THYROMEGALY, NO JVD, NO LAD CVS: RRR, NORMAL S1S2 LUNGS/CHEST: CTA B, NORMAL CHEST EXPANSION B, GOOD AIR ENTRY B ABD: SOFT, NTND, GBS, NO REBOUND OR GUARDING EXT/SKIN: NO SIGNIFICANT EDEMA OR RASH MSK: FROM X 4 EXTREMITIES NEURO: CN 2-12 GROSSLY INTACT, NO FOCAL DEFICITS PSY: CALM - Constitutional Vitals: Temp Pulse Resp BP Pulse Ox 98.6 F 51 L 18 122/61 98 11/06/16 11:20 11/06/16 11:20 11/06/16 11:20 11/06/16 11:20 11/06/16 10:00 Results - Labs CBC & Chem 7: 11/05/16 10:06 11/05/16 10:06 Labs: Laboratory Last Values WBC 10.9 K/mm3 (4.5-11.0) 11/05/16 10:06 RBC 4.37 M/mm3 (3.65-5.03) 11/05/16 10:06 Hgb 10.4 gm/dl (10.1-14.3) 11/05/16 10:06 Hct 33.8 % (30.3-42.9) 11/05/16 10:06 MCV 78 fl (79-97) L 11/05/16 10:06 MCH 24 pg (28-32) L 11/05/16 10:06 MCHC 31 % (30-34) 11/05/16 10:06 RDW 14.2 % (13.2-15.2) 11/05/16 10:06 Plt Count 223 K/mm3 (140-440) 11/05/16 10:06 Lymph % (Auto) 16.9 % (13.4-35.0) 11/05/16 10:06 Sampson % (Auto) 4.7 % (0.0-7.3) 11/05/16 10:06 Eos % (Auto) 0.5 % (0.0-4.3) 11/05/16 10:06 Baso % (Auto) 0.3 % (0.0-1.8) 11/05/16 10:06 Lymph # 1.8 K/mm3 (1.2-5.4) 11/05/16 10:06 Sampson # 0.5 K/mm3 (0.0-0.8) 11/05/16 10:06 Eos # 0.0 K/mm3 (0.0-0.4) 11/05/16 10:06 Baso # 0.0 K/mm3 (0.0-0.1) 11/05/16 10:06 Seg Neutrophils % 77.6 % (40.0-70.0) H 11/05/16 10:06 Seg Neutrophils # 8.5 K/mm3 (1.8-7.7) H 11/05/16 10:06 PT 12.7 Sec. (12.2-14.9) 11/05/16 10:06 INR 0.91 (0.87-1.13) 11/05/16 10:06 APTT 30.7 Sec. (24.2-36.6) 11/05/16 10:06 Thrombin Time 17.4 Sec. (15.1-19.6) 11/05/16 10:06 Sodium 140 mmol/L (137-145) 11/05/16 10:06 Potassium 4.4 mmol/L (3.6-5.0) 11/05/16 10:06 Chloride 101.3 mmol/L (98-107) 11/05/16 10:06 Carbon Dioxide 22 mmol/L (22-30) 11/05/16 10:06 Anion Gap 21 mmol/L 11/05/16 10:06 BUN 51 mg/dL (7-17) H 11/05/16 10:06 Creatinine 1.8 mg/dL (0.7-1.2) H 11/05/16 10:06 Estimated GFR 33 ml/min 11/05/16 10:06 BUN/Creatinine Ratio 28.33 % 11/05/16 10:06 Glucose 260 mg/dL (65-100) H 11/05/16 10:06 POC Glucose 136 (70-105) H 11/06/16 11:44 Calcium 9.3 mg/dL (8.4-10.2) 11/05/16 10:06 Troponin T 0.030 ng/mL (0.00-0.029) H 11/05/16 10:06 Triglycerides 97 mg/dL (2-149) 11/05/16 10:06 Cholesterol 149 mg/dL (50-199) 11/05/16 10:06 LDL Cholesterol Direct 74 mg/dL (50-130) 11/05/16 10:06 HDL Cholesterol 56 mg/dL (40-59) 11/05/16 10:06 Cholesterol/HDL Ratio 2.66 % 11/05/16 10:06
--- NOTE | 2016-11-06 16:58 | Magnetic Resonance Report ---
FINAL REPORT PROCEDURE: MR BRAIN WO CON TECHNIQUE: Magnetic resonance imaging of the brain was performed without contrast material. HISTORY: stroke COMPARISON: Head CT dated July 31 2016 FINDINGS: Cerebellar tonsils are normally positioned. Cerebral ventricles are normal in size. No acute intracranial hemorrhage or mass effect is seen. Prominent scattered areas of increased T2 signal are seen in the supratentorial white matter likely due to chronic small vessel ischemic changes. Other causes of encephalopathy would be less likely. Similar changes are seen in the thalami and basal ganglia. No intracranial hemorrhage or mass effect is seen. IMPRESSION: Likely prominent chronic small vessel ischemic changes are seen in the brain. Other causes of encephalopathy would be less likely. An acute CVA is not seen.
[2016-11-06] MEDS: TYLENOL PO PRN (18:09)
[2016-11-06] MEDS: ZOCOR PO SCH (22:02)
[2016-11-07] MEDS: TYLENOL PO PRN ×3 (00:14→20:36)
[2016-11-07] MEDS: CATAPRES PO SCH ×3 (08:03→20:37)
[2016-11-07] MEDS: ASPIRIN PO SCH ×2 (08:03→09:59)
[2016-11-07] MEDS: FEOSOL PO SCH ×3 (08:03→22:16)
[2016-11-07] MEDS: LOPRESSOR PO SCH ×3 (08:03→22:16)
[2016-11-07 09:37] LABS: Hematocrit 33.3 % (30.3-42.9); Hemoglobin 10.2 gm/dl (10.1-14.3); Mean Corpuscular HGB Conc 31 % (30-34); Mean Corpuscular Volume 78 fl (79-97); Platelet Count 217 K/mm3 (140-440); Red Blood Count 4.29 M/mm3 (3.65-5.03); Red Cell Distribution Width 14.6 % (13.2-15.2); White Blood Count 7.3 K/mm3 (4.5-11.0)
[2016-11-07 09:46] LABS: Mean Corpuscular Hemoglobin 24 pg (28-32)
[2016-11-07 09:57] LABS: BUN/Creatinine Ratio 19.52; Calcium 9.2 mg/dL (8.4-10.2); Chloride 103.4 mmol/L (98-107); Potassium 4.4 mmol/L (3.6-5.0)
[2016-11-07] MEDS: HCTZ PO SCH (09:59)
[2016-11-07] MEDS: HEPARIN SUB-Q SCH ×2 (10:36→22:16)
--- NOTE | 2016-11-07 12:27 | Progress Note ---
Assessment and Plan Assessment and plan: Patient is 70-year-old woman with a history of hypertension, diabetes mellitus type 2, CK D stage4 last creatinine here was 1.9 on 08/27/2016. She also had echocardiogram 08/01/2016 which read as estimated EF 50-55%, mild concentric left ventricular hypertrophy, mild MR, mild AR, left atrium is mildly dilated. She presented to the hospital with altered mental status. MRA of the head read as negative. Carotid ultrasounds been negative. Her blood pressure is 200 601 111. Troponin was mildly elevated at 0.030. Blood sugars uncontrolled 290. -Acute metabolic encephalopathy may be due to malignant hypertension: Control blood pressure with antihypertensive. -Altered mental status possible stroke: I ordered MRI of the brain which is negative for acute stroke, Treat with aspirin and statins -No acute renal failure but CK D stage IV: Repeat BMP a.m. now Cr is increasing , so this may be ARF, vasomotor nephropathy, poa: consult renal and get renal u/ s -uncontrolled type 2 diabetes mellitus for hyperglycemia hyperosmolar: Add sliding scale and ADA diet -DVT prophylaxis: Use subcutaneous heparin -Right hand contractures appears to be Dupuytren's or carpel tunnel or another condition, will need outpatient EMG with Neurology, treat with wrist splint -Elevated troponin. She has had in the past, repeat levels and if trending up will consult cardiology -Malignant hypertension: Treated with antihypertensive disposition: Once creatinine stabilizes can be discharged home. Repeat BMP a.m. History Interval history: Patient seen and examined. Follow up on current diagnosis/altered mental status. Overnight uneventful. No cp, sob, n/v or severe headaches. Imaging, old records, testing, labs, nursing notes reviewed. Hospitalist Physical - Physical exam Narrative exam: GEN: WDWN, NAD, AWAKE, ALERT, ORIENTATED x 3 HEENT: NCAT, PERRL, EOMI, OP CLEAR NECK: SUPPLE, NO THYROMEGALY, NO JVD, NO LAD CVS: RRR, NORMAL S1S2 LUNGS/CHEST: CTA B, NORMAL CHEST EXPANSION B, GOOD AIR ENTRY B ABD: SOFT, NTND, GBS, NO REBOUND OR GUARDING EXT/SKIN: NO SIGNIFICANT EDEMA OR RASH MSK: FROM X 4 EXTREMITIES, right hand is contracted, ?carpel tunnel or ? dupuytren type contracture NEURO: CN 2-12 GROSSLY INTACT, NO FOCAL DEFICITS PSY: CALM - Constitutional Vitals: Temp Pulse Resp BP Pulse Ox 98.0 F 52 L 16 131/66 97 11/07/16 11:36 11/07/16 11:36 11/07/16 11:36 11/07/16 11:36 11/07/16 11:36 Results - Labs CBC & Chem 7: 11/07/16 09:06 11/07/16 09:06 Labs: Laboratory Last Values WBC 7.3 K/mm3 (4.5-11.0) 11/07/16 09:06 RBC 4.29 M/mm3 (3.65-5.03) 11/07/16 09:06 Hgb 10.2 gm/dl (10.1-14.3) 11/07/16 09:06 Hct 33.3 % (30.3-42.9) 11/07/16 09:06 MCV 78 fl (79-97) L 11/07/16 09:06 MCH 24 pg (28-32) L 11/07/16 09:06 MCHC 31 % (30-34) 11/07/16 09:06 RDW 14.6 % (13.2-15.2) 11/07/16 09:06 Plt Count 217 K/mm3 (140-440) 11/07/16 09:06 Lymph % (Auto) 16.9 % (13.4-35.0) 11/05/16 10:06 [place] % (Auto) 4.7 % (0.0-7.3) 11/05/16 10:06 Eos % (Auto) 0.5 % (0.0-4.3) 11/05/16 10:06 Baso % (Auto) 0.3 % (0.0-1.8) 11/05/16 10:06 Lymph # 1.8 K/mm3 (1.2-5.4) 11/05/16 10:06 [place] # 0.5 K/mm3 (0.0-0.8) 11/05/16 10:06 Eos # 0.0 K/mm3 (0.0-0.4) 11/05/16 10:06 Baso # 0.0 K/mm3 (0.0-0.1) 11/05/16 10:06 Seg Neutrophils % 77.6 % (40.0-70.0) H 11/05/16 10:06 Seg Neutrophils # 8.5 K/mm3 (1.8-7.7) H 11/05/16 10:06 PT 12.7 Sec. (12.2-14.9) 11/05/16 10:06 INR 0.91 (0.87-1.13) 11/05/16 10:06 APTT 30.7 Sec. (24.2-36.6) 11/05/16 10:06 Thrombin Time 17.4 Sec. (15.1-19.6) 11/05/16 10:06 Sodium 144 mmol/L (137-145) 11/07/16 09:06 Potassium 4.4 mmol/L (3.6-5.0) 11/07/16 09:06 Chloride 103.4 mmol/L (98-107) 11/07/16 09:06 Carbon Dioxide 23 mmol/L (22-30) 11/07/16 09:06 Anion Gap 22 mmol/L 11/07/16 09:06 BUN 41 mg/dL (7-17) H 11/07/16 09:06 Creatinine 2.1 mg/dL (0.7-1.2) H 11/07/16 09:06 Estimated GFR 28 ml/min 11/07/16 09:06 BUN/Creatinine Ratio 19.52 % 11/07/16 09:06 Glucose 193 mg/dL (65-100) H 11/07/16 09:06 POC Glucose 135 (70-105) H 11/07/16 11:32 Calcium 9.2 mg/dL (8.4-10.2) 11/07/16 09:06 Troponin T 0.014 ng/mL (0.00-0.029) 11/07/16 09:06 Triglycerides 97 mg/dL (2-149) 11/05/16 10:06 Cholesterol 149 mg/dL (50-199) 11/05/16 10:06 LDL Cholesterol Direct 74 mg/dL (50-130) 11/05/16 10:06 HDL Cholesterol 56 mg/dL (40-59) 11/05/16 10:06 Cholesterol/HDL Ratio 2.66 % 11/05/16 10:06
--- NOTE | 2016-11-07 14:42 | Ultrasound Report ---
FINAL REPORT PROCEDURE: US RENAL BILAT TECHNIQUE: Real-time sonography in multiple planes of the kidneys, ureters and urinary bladder was performed with image documentation. CPT 77036 HISTORY: ARF COMPARISON: No prior studies are available for comparison. FINDINGS: RIGHT kidney: Increased echogenicity. No definite solid mass or calculus. 0.9 x 0.7 x 0.9 millimeter cyst with internal echoes suspected. Length: 9.7 cm. LEFT kidney: Increased echogenicity. No definite solid mass or calculus. 4.5 x 4.3 x 5 centimeter simple cyst. Length: 9.6cm. Bladder: Normal. IMPRESSION: Echogenic kidneys which may suggest evidence of medical renal disease. Suspect complex cyst of the right kidney with larger simple cyst of the left kidney. Follow-up exam in 3 months time to ensure stability in size of right renal cyst is recommended. Unremarkable urinary bladder
--- NOTE | 2016-11-07 16:44 | Event Note ---
Date: 11/07/16 Family reports being followed by Dr Andino ([employer]), notified Dr Patiño and hospitalist Dr Meza, will consult Dr Andino for nephrology management.
[2016-11-07] MEDS: ZOCOR PO SCH (22:16)
--- NOTE | 2016-11-08 07:48 | Consultation ---
History of Present Illness - Reason for Consult Consult date: 11/08/16 chronic renal failure - History of Present Illness Patient is a 70 YO Female with DM type , HTN, Migraine, CVA with right sided weakness and CKD stage 3 presented to ED for further evaluation of confusion. Pt was noticed by family members to be confused, unable to follow commands and difficulty in moving her right arm and leg. Patient denies any other symptoms. She does have chronic weakness of the right UE. Patient is well known to our service and followed her during her last hospital visit. Her renal function is at her baseline. Past History Past Medical History: diabetes, hypertension, other (migraine [place]) Past Surgical History: No surgical history, Other (reviewed) Social history: , lives with family. denies: smoking, alcohol abuse, prescription drug abuse Family history: diabetes, hypertension Medications and Allergies Allergies Allergy/AdvReac Type Severity Reaction Status Date / Time No Known Allergies Allergy Verified 08/01/16 01:22 Home Medications Medication Instructions Recorded Confirmed Last Taken Type Ferrous Sulfate [Feosol 325 MG tab] 325 mg PO BID #60 tablet 08/27/16 11/05/16 1 Day Ago Rx Hydrochlorothiazide [HCTZ] 25 mg PO QDAY #30 tablet 08/27/16 11/05/16 1 Day Ago Rx Metoprolol [Lopressor TAB] 100 mg PO BID #60 tablet 08/27/16 11/05/16 1 Day Ago Rx cloNIDine [Catapres] 0.1 mg PO TID #90 tablet 08/27/16 11/05/16 1 Day Ago Rx glipiZIDE XL [Glucotrol Xl] 2.5 mg PO DAILY@0800 #30 tablet 08/27/16 11/05/16 1 Day Ago Rx Aspirin [Aspirin TAB] 325 mg PO QDAY #30 tablet 11/08/16 Unknown Rx Active Meds: Active Medications Acetaminophen (Tylenol) 650 mg PO Q4H PRN PRN Reason: Pain, Mild (1-3) Last Admin: 11/07/16 20:36 Dose: 650 mg Albuterol (Proventil) 2.5 mg IH Q4HRT PRN PRN Reason: Shortness Of Breath Aspirin (Aspirin) 325 mg PO QDAY [facility] Last Admin: 11/07/16 09:59 Dose: Not Given Bisacodyl (Dulcolax) 10 mg RI QDAY PRN PRN Reason: Constipation Clonidine HCl (Catapres) 0.1 mg PO TID [facility] Last Admin: 11/07/16 20:37 Dose: 0.1 mg Ferrous Sulfate (Feosol) 325 mg PO BID [facility] Last Admin: 11/07/16 22:16 Dose: 325 mg Heparin Sodium (Porcine) (Heparin) 5,000 unit SUB-Q Q12HR [facility] Last Admin: 11/07/16 22:16 Dose: 5,000 unit Hydrochlorothiazide (Hctz) 25 mg PO QDAY [facility] Last Admin: 11/07/16 09:59 Dose: Not Given Magnesium Hydroxide (Milk Of Magnesia) 30 ml PO Q4H PRN PRN Reason: Constipation Metoprolol Tartrate (Lopressor) 100 mg PO BID [facility] Last Admin: 11/07/16 22:16 Dose: 100 mg Simvastatin (Zocor) 20 mg PO QHS [facility] Last Admin: 11/07/16 22:16 Dose: 20 mg Sodium Chloride (Sodium Chloride Flush Syringe 10 Ml) 10 ml IV PRN PRN PRN Reason: LINE FLUSH Review of Systems Constitutional: weight loss, weakness, poor appetite, no weight gain, no fever, no chills Ears, nose, mouth and throat: no sinus pain, no epistaxis Breasts: deferred Cardiovascular: no chest pain, no palpitations, no edema, no syncope, no lightheadedness, no shortness of breath Respiratory: no cough, no cough with sputum, no shortness of breath Gastrointestinal: no abdominal pain, no nausea, no vomiting, no diarrhea, no melena Genitourinary Female: no dysuria, no hematuria, no kidney stones Rectal: no bleeding Musculoskeletal: arm numbness/tingling Integumentary: no rash, no sores, no wounds, no jaundice Neurological: paralysis, weakness, change in mentation, confusion, no head injury, no seizures, no syncope, no convulsions Psychiatric: anxiety Allergic/Immunologic: urticaria Exam - Vital Signs Vital signs: Vital Signs Pulse Ox 100 11/05/16 10:10 - General Appearance General appearance: well-developed, well-nourished, other (no distress) EENT: ATNC, PERRL, mucous membranes moist, hearing intact Neck: Present: neck supple, trachea midline Respiratory: Clear to Ascultation Heart: regular, S1S2, no murmurs Gastrointestinal: Present: normoactive bowel sounds. Absent: tenderness Integumentary: no rash Neurologic: no asterixis, alert and oriented x3, other (slight weakness of right hand (chronic), left eye blindness) Musculoskeletal: Present: other (no edema) Psychiatric: mood/affect appropriate, cooperative Results - Lab Results 11/07/16 09:06 11/07/16 09:06 Most recent lab results Calcium 9.2 mg/dL (8.4-10.2) 11/07/16 09:06 Assessment and Plan - Patient Problems (1) Chronic kidney disease, stage 3 (moderate) Status: Chronic Plan to address problem: Patient with known h/o CKD stage 3. Renal function is at her baseline. (2) Altered mental status Status: Acute Qualifiers: Altered mental status type: transient alteration of awareness Coma depth: C Coma timing: C Qualified Code(s): R40.4 - Transient alteration of awareness Plan to address problem: Improved. (3) HTN (hypertension) Status: Chronic Qualifiers: Hypertension type: essential hypertension Qualified Code(s): I10 - Essential (primary) hypertension (4) CVA (cerebral vascular accident) Status: Chronic Qualifiers: CVA mechanism: unspecified Precerebral and cerebral artery: P Laterality of affected vessel: L Qualified Code(s): I63.9 - Cerebral infarction, unspecified (5) Diabetes Status: Chronic Qualifiers: Diabetes mellitus type: type 2 Diabetes mellitus complication status: with hyperglycemia Diabetes mellitus complication detail: D Diabetic retinopathy severity: D Proliferative retinopathy type: P Diabetes mellitus macular edema: D Diabetes mellitus local driver insulin use: without usp use Laterality: L Chronic kidney disease stage: C Qualified Code(s): E11.65 - Type 2 diabetes mellitus with hyperglycemia
[2016-11-08] MEDS: FEOSOL PO SCH (10:21)
[2016-11-08] MEDS: ASPIRIN PO SCH (10:21)
[2016-11-08] MEDS: HEPARIN SUB-Q SCH (10:22)
[2016-11-08] MEDS: LOPRESSOR PO SCH (10:22)
[2016-11-08] MEDS: CATAPRES PO SCH ×2 (10:22→15:08)
[2016-11-08] MEDS: HCTZ PO SCH (10:22)
--- NOTE | 2016-11-08 12:29 | Discharge Summary ---
Providers - Providers Date of Admission: 11/05/16 15:00 Date of discharge: 11/08/16 Attending physician: JAIMEE JACKSON 11/07/16 12:11 Consult to Physician [CONS] Routine Consulting Provider: USHA CLAROS Reason For Exam: ARF Place consult to:: Haroon ROMEO Notified:: a service Phone number called:: [phone] Was contact made?: No Time called:: 13:17 Comment:: no answer at a service/ noice mailbox was full.made serval att put on list 11/07/16 16:48 Consult to Physician [CONS] Routine Consulting Provider: RACHANA REID Reason For Exam: ARF Place consult to:: renal Notified:: a service Phone number called:: [phone] Was contact made?: Yes If yes, spoke with:: Dr Reid Time called:: 16:54 Primary care physician: LIS PASTOR Hospitalization Condition: Stable Hospital course: Patient is 70-year-old woman with a history of hypertension, diabetes mellitus type 2, CK D stage4 last creatinine here was 1.9 on 08/27/2016. She also had echocardiogram 08/01/2016 which read as estimated EF 50-55%, mild concentric left ventricular hypertrophy, mild MR, mild AR, left atrium is mildly dilated. She presented to the hospital with altered mental status. MRA of the head read as negative. Carotid ultrasounds been negative. Her blood pressure is 200 601 111. Troponin was mildly elevated at 0.030. Blood sugars uncontrolled 290. -Acute metabolic encephalopathy may be due to malignant hypertension: Control blood pressure with antihypertensive. -Altered mental status possible stroke: I ordered MRI of the brain which is negative for acute stroke, Treat with aspirin and statins -No acute renal failure but CK D stage IV: Repeat BMP a.m. now Cr is increasing , so this may be ARF, vasomotor nephropathy, poa: consult renal and get renal u/ s -uncontrolled type 2 diabetes mellitus for hyperglycemia hyperosmolar: Add sliding scale and ADA diet -DVT prophylaxis: Use subcutaneous heparin -Right hand contractures appears to be Dupuytren's or carpel tunnel or another condition, will need outpatient EMG with Neurology, treat with wrist splint -Elevated troponin. She has had in the past, repeat levels and if trending up will consult cardiology -Malignant hypertension: Treated with antihypertensive disposition: Once creatinine stabilizes can be discharged home. Repeat BMP a.m. ===>she refused, per RN note: "11/08/16 05:51 - Nurse Note by MIRNA MURPHY Acct Num: [id number] : 1945 Patient Age: 70 Pt is awake and alert this am.Pt has already refused for vital signs and labs to be taken.This nurse in room ,and remains at bedside,he stated he tried talking to spouse,she continue to refused.Continue to monitor. Initialized on 11/08/16 05:51 - END OF NOTE" Patient continues to refuse blood work, will discharge because she is getting tired of being stuck, I explained the importance. Disposition: DC-01 TO HOME OR SELFCARE Time spent for discharge: 35 minutes Core Measure Documentation - Palliative Care Palliative Care/ Comfort Measures: Not Applicable - Core Measures Any of the following diagnoses?: none - VTE Discharge Requirements Deep Vein Thrombosis/Pulmonary Embolism Present on Admission: No Has pt received <5 days of overlap therapy or INR<2.0: No Anticoagulant overlap therapy prescribed at discharge: No Contraindication No Overlap Therapy order at DC: Not Indicated Exam - Physical Exam Narrative exam: GEN: WDWN, NAD, AWAKE, ALERT, ORIENTATED x 3 HEENT: NCAT, PERRL, EOMI, OP CLEAR NECK: SUPPLE, NO THYROMEGALY, NO JVD, NO LAD CVS: RRR, NORMAL S1S2 LUNGS/CHEST: CTA B, NORMAL CHEST EXPANSION B, GOOD AIR ENTRY B ABD: SOFT, NTND, GBS, NO REBOUND OR GUARDING EXT/SKIN: NO SIGNIFICANT EDEMA OR RASH MSK: FROM X 4 EXTREMITIES, right hand is contracted, ?carpel tunnel or ? dupuytren type contracture NEURO: CN 2-12 GROSSLY INTACT, NO FOCAL DEFICITS PSY: CALM - Constitutional Vitals: Temp Pulse Resp BP Pulse Ox 97.4 F L 68 16 186/80 99 11/08/16 08:48 11/08/16 10:00 11/08/16 08:48 11/08/16 08:48 11/08/16 11:10 Plan Activity: other (no strenous activites until cleared by PCP. 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 Repeat Renal U/S in 3 months with your Kidney doctor Follow up with: LIS PASTOR MD [Primary Care Provider] - 7 Days RACHANA REID MD [Staff Physician] - 7 Days SRAVANTHI YANEZ MD [Staff Physician] - 7 Days
[2016-11-08 13:05] VITALS: BP 165/78
== END 2016-11-08 16:03 | disposition home or self-care (01) | DRG 64 ==
LOC: ED 10:10 → 4A 15:00
PROVIDERS: ADMIT Internal Medicine; ATTEND Internal Medicine
DX: I63.9 Cerebral infarction, unspecified (principal); N17.0 Acute kidney failure with tubular necrosis; G93.41 Metabolic encephalopathy; E11.00 Type 2 diabetes mellitus with hyperosmolarity without nonketotic hyperglycemic-hyperosmolar coma (NKHHC); N18.4 Chronic kidney disease, stage 4 (severe); I12.9 Hypertensive chronic kidney disease with stage 1 through stage 4 chronic kidney disease, or unspecified chronic kidney disease; I08.0 Rheumatic disorders of both mitral and aortic valves; G43.909 Migraine, unspecified, not intractable, without status migrainosus; I16.0 Hypertensive urgency; E11.65 Type 2 diabetes mellitus with hyperglycemia; Z83.3 Family history of diabetes mellitus
CPT/HCPCS: 36415; 70450; 70544; 70551; 76770; 80048; 80061; 82962; 84484; 85025; 85027; 85610; 85670; 85730; 93005; 93010; 93880; G8987-GO; G8988-GO; G8996-GN; G8997-GN; G8998-GN; J1644